=== PATIENT | female | born 1950 | race Caucasian/White ===

== ENCOUNTER 2018-07-17 18:13 | Inpatient (IN) ==
--- NOTE | 2018-07-17 18:41 | Emergency Department Note ---
START Narrative - START START: 68-year-old female with significant past medical history of diabetes currently on metformin presenting to the emergency department with chief complaint of nausea, abdominal distention and overall not feeling well. She states she has been on amoxicillin for approximately 1 week for a sinus infection. She states those symptoms resolved but now she is having fever and has had decreased appetite. Patient states she also has a distended abdomen and feels that she cannot drink enough. Her blood glucose has been elevated up into the 300s at home. Patient has had one previous admission for DKA. On physical exam patient is alert and oriented 3. Hemodynamically stable mildly tachycardic in the low 100s. Mucous membranes are dry, abdomen is distended and diffusely tender but does not seem to be surgical at this time. We will perform DKA laboratory analysis along with a CT of the abdomen and pelvis. We will sign the patient out to the night team attending Dr. Benitez.
--- NOTE | 2018-07-17 18:44 | Emergency Department Note ---
START Narrative - START START: Start note, evaluated with emergency medicine resident Dr. Monster Okeefe. We discussed with the patient that the evening ED attending resident team of Dr. Benitez and Dr. Gutierrez be arriving shortly. Patient is non-insulin dependent diabetic appears dehydrated and tachycardic complaining of generalized malaise abdominal pain. Patient will get screening labs IV fluids anti-medics abdominal pelvic CT and urinalysis. Patient in stable condition and is understanding of this management plan.
--- NOTE | 2018-07-17 19:34 | Emergency Department Note ---
Disposition Clinical Impression: Ruptured appendicitis Leukocytosis Qualifiers: Leukocytosis type: unspecified Qualified Code(s): D72.829 - Elevated white blood cell count, unspecified Disposition: Admitted As Inpatient Condition: Fair Referrals: Sherry Fermin CNP [Primary Care Provider] - Forms: ED Satisfaction Letter General Adult HPI - General Chief complaint: ED Fever Stated complaint: Blood glucose 259,fever,sinus infection Time Seen by Provider: 07/17/18 18:28 Source: patient Mode of arrival: private vehicle Limitations: no limitations Nursing Notes Reviewed: Yes Vital Signs Reviewed: Yes - History of Present Illness HPI Narrative: 68-year-old female presenting with a complaint of recent sinus infection and abdominal pain. Started on amoxicillin roughly 1 week ago for sinusitis. At home her glucose has been running 2-300 which is abnormal for her. She only is on metformin at this time. Reports lower abdominal pain with no bowel movement in the last 48 hours. Has one prior abdominal surgery for necrotizing fasciitis in the right groin. Denies any dysuria or hematuria. Has been nauseated without vomiting. No other complaints. Pt Subjective Complaint: High glucose levels, recent sinus infection Onset (ago): day(s) Location: abdomen Radiation: abdomen Pain Severity: moderate Pain Scale: 7 Consistency: constant Improves with: nothing Worsens with: nothing Associated symptoms: Reports: nausea/vomiting. Denies: fever/chills Treatments Prior to Arrival: none - Related Data Allergies Allergy/AdvReac Type Severity Reaction Status Date / Time No Known Allergies Allergy Verified 07/17/18 18:23 All systems ED: reviewed and negative except as stated. Constitutional: Denies: fever Gastrointestinal: Reports: abdominal pain, nausea, constipation. Denies: vomiting, diarrhea Genitourinary: Denies: dysuria, hematuria Past Medical History - Past Medical History Attestation: Yes The following information was validated with the patient. Source: patient Medical history: Reports: diabetes - Social History Smoking Status: Unknown if ever smoked Physical Exam - General Limitations: no limitations General appearance: alert, in no apparent distress - Head Head exam: atraumatic, normocephalic, normal inspection - Eye Eye exam: Present: normal appearance - ENT ENT exam: normal exam - Neck Neck exam: Present: normal inspection - Chest Chest inspection: Present: normal inspection, symmetric chest wall rise - Respiratory Respiratory exam: Present: normal lung sounds bilaterally - Cardiovascular Cardiovascular exam: Present: normal rhythm, tachycardia, normal heart sounds - Abdominal Exam Abdominal exam: Present: soft, tenderness (The patient has moderate bilateral lo wer quadrant tenderness on exam with voluntary guarding.), guarding (Voluntary). Absent: distention, rigidity - Extremities Exam Extremities exam: Present: normal inspection, full ROM - Expanded Upper Extremity Exam Shoulder exam: Present: normal inspection, full ROM Arm exam: Present: normal inspection, full ROM Elbow exam: Present: normal inspection, full ROM Forearm/Wrist exam: Present: normal inspection, full ROM Hand exam: Present: normal inspection, full ROM - Expanded Lower Extremity Exam Hip/Pelvis exam: Present: normal inspection, full ROM Upper leg exam: Present: normal inspection, full ROM Knee exam: Present: normal inspection, full ROM Lower leg exam: Present: normal inspection, full ROM Ankle exam: Present: normal inspection, full ROM Foot/toe exam: Present: normal inspection, full ROM - Skin Skin exam: Present: warm, dry Course Course Narrative: Patient seen and examined. Vital signs reviewed. She does have a moderate amount of abdominal pain. Imaging labs ordered at this time. - Reevaluation(s) Reevaluation #1: Lactate and blood cultures obtained. Lactate wnl. Awaiting surgical evaluation. Reevaluation #2: Spoke with Dr. Sigala in the emergency department after evaluation of the patient. Recommends that the patient have a drain placed by interventional radiology tomorrow and then an interval appendectomy. No plans for immediate surgical intervention at this time. Plans to follow the patient in consultation with the hospitalist service. - Consultations Consultation #1: I spoke with the medical student on with Dr. Ho as he was currently in surgery who relayed the patient's history as well as imaging and labs. Patient is noted to have ruptured appendicitis with adjacent fluid collection containing gas. Labs at this point demonstrated a leukocytosis of 30. During a dose of Zosyn. Request admission to the hospitalist and they will be down to see the patient when able. Vital Signs Temperature 99.2 F 07/17/18 18:19 Pulse Rate 107 07/17/18 18:19 Respiratory Rate 18 07/17/18 18:19 Blood Pressure 133/65 07/17/18 18:19 O2 Sat by Pulse Oximetry 91 07/17/18 18:19 Temperature 99.2 F 07/17/18 19:28 Pulse Rate 101 07/17/18 20:53 Respiratory Rate 18 07/17/18 20:53 Blood Pressure 122/59 07/17/18 20:53 O2 Sat by Pulse Oximetry 94 07/17/18 20:53 Oxygen Delivery Oxygen Delivery Room Air Medical Decision Making - MDM Narrative Medical decision making narrative: 68-year-old female with ruptured appendicitis with abscess formation. She is noted to have a leukocytosis of roughly 30 here. Normal lactate. Blood cultures obtained. Patient started on Zosyn. She was evaluated by general surgery with admission to the hospitalist service with anticipated intervention al radiology intervention tomorrow. - Lab Data Lab results reviewed: Yes I reviewed the patient's lab results. Result diagrams: 07/17/18 19:22 07/17/18 19:22 Lab Results 07/17/18 07/17/18 07/17/18 Range/Units 19:22 19:22 19:22 WBC 30.3 H* (4.3-11.1) K/mcL RBC 4.74 (3.82-4.97) M/mcL Hgb 14.5 (11.5-15.4) g/dL Hct 42.8 (35.3-44.9) % MCV 90.3 (83.0-100.0) fL MCH 30.6 (28.0-33.3) pg MCHC 33.9 (31.6-35.5) g/dL RDW 13.4 (11.5-14.5) % Plt Count 221 (140-400) K/mcL MPV 9.5 (9.4-12.4) fL Seg Neutrophils % 70.0 % Band Neutrophils % 18.0 H (0-4) % Lymphocytes % 8.0 % Monocytes % 4.0 % Neutrophils # 26.7 H (1.6-8.9) K/mcL Lymphocytes # 2.4 (0.6-4.6) K/mcL Monocytes # 1.2 (0.0-1.3) K/mcL Platelet Estimate Normal (Normal) PT (9.4-12.1) Seconds INR VBG pH (7.32-7.42) pH Units VBG pCO2 (41-51) mmHg VBG pO2 (25-50) mmHg VBG HCO3 (21-27) mEq/L Sodium 133 L (136-145) mEq/L Potassium 3.9 (3.5-5.1) mEq/L Chloride 96 L (98-107) mEq/L Carbon Dioxide 27 (23-29) mEq/L BUN 25 H (8-23) mg/dL Creatinine 0.72 (0.60-1.20) mg/dL Est GFR ( Amer) > 60 (> 60) Est GFR (Non-Af Amer) > 60 (> 60) BUN/Creatinine Ratio 35 H (6-26) Glucose 241 H (70-105) mg/dL Calculated Osmolality 288 (280-300) Lactic Acid (0.5-2.2) mmol/L Calcium 9.3 (8.6-10.3) mg/dL Total Bilirubin 0.8 (0.3-1.0) mg/dL AST 11 L (13-39) Units/L ALT 12 (7-52) Units/L Alkaline Phosphatase 56 (34-104) Units/L Serum Total Protein 6.7 (6.4-8.9) g/dL Albumin 3.7 (3.5-5.7) g/dL Globulin 3.0 (2.4-3.5) g/dL Albumin/Globulin Ratio 1.2 (1.1-2.2) Lipase < 3 L (11-82) Units/L Beta-Hydroxybutyric Acd 0.25 (0.02-0.27) mmol/L Urine Color (Yellow) Urine Clarity (Clear) Urine pH (5.0-8.0) pH Units Ur Specific [place] (1.010-1.025) Urine Protein (Neg-Trace) mg/dL Urine Glucose (UA) (Normal) mg/dL Urine Ketones (Negative) mg/dL Urine Blood (Negative) Urine Nitrite (Negative) Urine Bilirubin (Negative) Urine Urobilinogen (Normal) mg/dL Ur Leukocyte Esterase (Negative) Urine Microscopic RBC (0-3) per hpf Urine Microscopic WBC (0-3) per hpf Ur Squamous Epith Cells (None-Few) per lpf Urine Bacteria (None-Few) per hpf Hyaline Casts (None-Few) per lpf Ur Culture Indicated? (NO) 07/17/18 07/17/18 07/17/18 Range/Units 19:27 19:45 19:48 WBC (4.3-11.1) K/mcL RBC (3.82-4.97) M/mcL Hgb (11.5-15.4) g/dL Hct (35.3-44.9) % MCV (83.0-100.0) fL MCH (28.0-33.3) pg MCHC (31.6-35.5) g/dL RDW (11.5-14.5) % Plt Count (140-400) K/mcL MPV (9.4-12.4) fL Seg Neutrophils % % Band Neutrophils % (0-4) % Lymphocytes % % Monocytes % % Neutrophils # (1.6-8.9) K/mcL Lymphocytes # (0.6-4.6) K/mcL Monocytes # (0.0-1.3) K/mcL Platelet Estimate (Normal) PT 14.1 H (9.4-12.1) Seconds INR 1.3 VBG pH 7.42 (7.32-7.42) pH Units VBG pCO2 44 (41-51) mmHg VBG pO2 46 (25-50) mmHg VBG HCO3 28 H (21-27) mEq/L Sodium (136-145) mEq/L Potassium (3.5-5.1) mEq/L Chloride (98-107) mEq/L Carbon Dioxide (23-29) mEq/L BUN (8-23) mg/dL Creatinine (0.60-1.20) mg/dL Est GFR ( Amer) (> 60) Est GFR (Non-Af Amer) (> 60) BUN/Creatinine Ratio (6-26) Glucose (70-105) mg/dL Calculated Osmolality (280-300) Lactic Acid (0.5-2.2) mmol/L Calcium (8.6-10.3) mg/dL Total Bilirubin (0.3-1.0) mg/dL AST (13-39) Units/L ALT (7-52) Units/L Alkaline Phosphatase (34-104) Units/L Serum Total Protein (6.4-8.9) g/dL Albumin (3.5-5.7) g/dL Globulin (2.4-3.5) g/dL Albumin/Globulin Ratio (1.1-2.2) Lipase (11-82) Units/L Beta-Hydroxybutyric Acd (0.02-0.27) mmol/L Urine Color [place] A (Yellow) Urine Clarity Cloudy A (Clear) Urine pH 5.5 (5.0-8.0) pH Units Ur Specific [place] 1.029 H (1.010-1.025) Urine Protein 100 H (Neg-Trace) mg/dL Urine Glucose (UA) Normal (Normal) mg/dL Urine Ketones Trace H (Negative) mg/dL Urine Blood Negative (Negative) Urine Nitrite Negative (Negative) Urine Bilirubin Negative (Negative) Urine Urobilinogen Normal (Normal) mg/dL Ur Leukocyte Esterase Small H (Negative) Urine Microscopic RBC 0-3 (0-3) per hpf Urine Microscopic WBC 3-5 H (0-3) per hpf Ur Squamous Epith Cells Many H (None-Few) per lpf Urine Bacteria Few (None-Few) per hpf Hyaline Casts Few (None-Few) per lpf Ur Culture Indicated? NO. A (NO) 07/17/18 Range/Units 20:24 WBC (4.3-11.1) K/mcL RBC (3.82-4.97) M/mcL Hgb (11.5-15.4) g/dL Hct (35.3-44.9) % MCV (83.0-100.0) fL MCH (28.0-33.3) pg MCHC (31.6-35.5) g/dL RDW (11.5-14.5) % Plt Count (140-400) K/mcL MPV (9.4-12.4) fL Seg Neutrophils % % Band Neutrophils % (0-4) % Lymphocytes % % Monocytes % % Neutrophils # (1.6-8.9) K/mcL Lymphocytes # (0.6-4.6) K/mcL Monocytes # (0.0-1.3) K/mcL Platelet Estimate (Normal) PT (9.4-12.1) Seconds INR VBG pH (7.32-7.42) pH Units VBG pCO2 (41-51) mmHg VBG pO2 (25-50) mmHg VBG HCO3 (21-27) mEq/L Sodium (136-145) mEq/L Potassium (3.5-5.1) mEq/L Chloride (98-107) mEq/L Carbon Dioxide (23-29) mEq/L BUN (8-23) mg/dL Creatinine (0.60-1.20) mg/dL Est GFR ( Amer) (> 60) Est GFR (Non-Af Amer) (> 60) BUN/Creatinine Ratio (6-26) Glucose (70-105) mg/dL Calculated Osmolality (280-300) Lactic Acid 1.2 (0.5-2.2) mmol/L Calcium (8.6-10.3) mg/dL Total Bilirubin (0.3-1.0) mg/dL AST (13-39) Units/L ALT (7-52) Units/L Alkaline Phosphatase (34-104) Units/L Serum Total Protein (6.4-8.9) g/dL Albumin (3.5-5.7) g/dL Globulin (2.4-3.5) g/dL Albumin/Globulin Ratio (1.1-2.2) Lipase (11-82) Units/L Beta-Hydroxybutyric Acd (0.02-0.27) mmol/L Urine Color (Yellow) Urine Clarity (Clear) Urine pH (5.0-8.0) pH Units Ur Specific [place] (1.010-1.025) Urine Protein (Neg-Trace) mg/dL Urine Glucose (UA) (Normal) mg/dL Urine Ketones (Negative) mg/dL Urine Blood (Negative) Urine Nitrite (Negative) Urine Bilirubin (Negative) Urine Urobilinogen (Normal) mg/dL Ur Leukocyte Esterase (Negative) Urine Microscopic RBC (0-3) per hpf Urine Microscopic WBC (0-3) per hpf Ur Squamous Epith Cells (None-Few) per lpf Urine Bacteria (None-Few) per hpf Hyaline Casts (None-Few) per lpf Ur Culture Indicated? (NO) - Radiology Data Radiology results reviewed: Yes I reviewed the patient's radiology results. Abdomen/Pelvis CT 07/17/18 18:37 IMPRESSION: Findings consistent with acute appendicitis. 3.9 cm adjacent fluid collection is likely due to appendiceal rupture. Cholelithiasis without evidence of cholecystitis. D/ / Arvind Lester MD / Arvind Lester MD Interpreting Provider: Arvind Lester MD [facility] - [facility] Situation: Demographics, MOA Background: Presenting Complaint, Relevant PMH, Meds, & Allergies Assessment: Vital Signs, Course and respsone to treatment, Exam Concerns, Patient/Family Expectation, Pertinant Lab Results Recommendation: Barrier(s) to disposition, Recommendation based on pending studies, treatments, or consults Thais Report Given to: Dr. Amy Plascencia Repor Time: 21:50
[2018-07-17 19:48] LABS: Hematocrit 42.8 % (35.3-44.9); Hemoglobin 14.5 g/dL (11.5-15.4); Mean Corpuscular HGB Conc 33.9 g/dL (31.6-35.5); Mean Corpuscular Hemoglobin 30.6 pg (28.0-33.3); Mean Corpuscular Volume 90.3 fL (83.0-100.0); Mean Platelet Volume 9.5 fL (9.4-12.4); Platelet Count 221 K/mcL (140-400); Red Blood Count 4.74 M/mcL (3.82-4.97); Red Cell Distribution Width 13.4 % (11.5-14.5)
[2018-07-17 19:51] LABS: VBG HCO3 28 mEq/L (21-27); VBG PCO2 44 mmHg (41-51); VBG PH 7.42 pH Units (7.32-7.42); VBG PO2 46 mmHg (25-50)
[2018-07-17] MEDS ORDERED: Piperacillin/Tazobactam 3.375 GM in 0.9 % Sodium Chloride Mini Bag 100 ML IVPB ONE (19:53)
[2018-07-17] MEDS: 0.9 % Sodium Chloride 1,000 ML IVC SCH ×2 (19:53→23:41)
[2018-07-17 19:58] LABS: Bilirubin,Urine Negative (Negative); Blood,Urine Negative (Negative); Clarity,Urine Cloudy (Clear); Color,Urine Orange (Yellow); Glucose,Urine (UA) Normal (Normal); Ketones,Urine Trace mg/dL (Negative); Leukocyte Esterase,Urine Small (Negative); Nitrite,Urine Negative (Negative); PH,Urine 5.5 pH Units (5.0-8.0); Protein,Urine 100 mg/dL (Neg-Trace); Specific Gravity,Urine 1.029 (1.010-1.025); Urobilinogen,Urine Normal (Normal)
[2018-07-17 20:06] LABS: Alanine Aminotransferase 12 Units/L (7-52); Albumin 3.7 g/dL (3.5-5.7); Albumin/Globulin Ratio 1.2 (1.1-2.2); Alkaline Phosphatase 56 Units/L (34-104); Aspartate Amino Transferase 11 Units/L (13-39); BUN/Creatinine Ratio 35 (6-26); Bilirubin,Total 0.8 mg/dL (0.3-1.0); Blood Urea Nitrogen 25 mg/dL (8-23); Calcium 9.3 mg/dL (8.6-10.3); Carbon Dioxide 27 mEq/L (23-29); Chloride 96 mEq/L (98-107); Glucose 241 mg/dL (70-105); Lipase < 3 Units/L (11-82); Osmolality,Calculated 288 (280-300); Potassium 3.9 mEq/L (3.5-5.1); Sodium 133 mEq/L (136-145); Total Protein 6.7 g/dL (6.4-8.9); eGFR For Non-African Americans > 60 (> 60)
[2018-07-17 20:15] LABS: Bacteria,Urine Few per hpf (None-Few); Hyaline Casts,Urine Few per lpf (None-Few); RBC,Urine 0-3 per hpf (0-3); Squamous Epithelial Cell,Urine Many per lpf (None-Few)
[2018-07-17 20:18] LABS: Lymphocytes # 2.4 K/mcL (0.6-4.6); Monocytes # 1.2 K/mcL (0.0-1.3); Neutrophils # 26.7 K/mcL (1.6-8.9); Platelet Estimate Normal (Normal)
[2018-07-17 20:21] LABS: INR 1.3; Prothrombin Time 14.1 Seconds (9.4-12.1)
--- NOTE | 2018-07-17 21:50 | General Surgery Consult Note ---
Date of Encounter: 07/17/18 Time of Encounter: 21:48 Assessment and Plan (1) Ruptured appendicitis Current Visit: Yes Status: Acute 68F with perforated appendicitis; leukocytosis, tender on exam, non peritoneal NPO IVF IV abx (zosyn) activity as tolerated trend WBC, temp IR consult for drainage of abscess no acute surgery will cont to follow cares per primary team History of Present Illness Consult date: 07/17/18 Reason for consult: abdominal pain History of present illness: 68F h/o HTN, DM, prior history of necrotizing fascitis who presents with 4 days of worsening abdominal pain. The pain is localized to the RLQ, non radiating, with no identifiable precipitating event. The states that she was on amoxicillin x 4 days prior to the start of her abdominal pain 2/2 upper respiratory infection. The pain ~ 5/10, worsened with movement, better when ly ing still. The patient has associated anorexia and fever (101). Due to the severity and persistence of the pain, she presents to the ER for further evaluation. A CT scan was obtained demonstrating findings consistent with perforated appendicitis with associated abscess. Past Med Surg Social Fam HX - Past Medical History Medical history: diabetes - Past Surgical History Surgical History: other (excisional debridement 2/2 nec fasc) - Social History Smoking Status: Unknown if ever smoked Medications and Allergies Allergy/AdvReac Type Severity Reaction Status Date / Time No Known Allergies Allergy Verified 07/17/18 18:23 Review of Systems All systems PM: 12 point ROS negative besides HPI findings General Surgery Exam Initial Vital Signs Temp Pulse Resp BP Pulse Ox 99.2 F 107 18 133/65 91 07/17/18 18:19 07/17/18 18:19 07/17/18 18:19 07/17/18 18:19 07/17/18 18:19 - General physical appearance no distress - Eyes normal ocular movement - ENT normocephalic - Neck trachea midline, no lymphadectomy - Respiratory normal expansion, normal respiratory effort - Cardiovascular Cardiovascular exam: Present: RRR - Abdomen Abdomen general surgery: Present: soft, tender Abdominal Tenderness: Present: RLQ, suprapubic - Integumentary Integumentary general surgery: Present: warm and dry, no abnormal pigmentation - Neurologic Present: CN 2-12 grossly intact - Musculoskeletal Present: normal posture - Psychiatric Psychiatric general surgery: Present: A&Ox3 Exam Initial Vital Signs Temp Pulse Resp BP Pulse Ox 99.2 F 107 18 133/65 91 07/17/18 18:19 07/17/18 18:19 07/17/18 18:19 07/17/18 18:19 07/17/18 18:19 Results - Labs 07/17/18 19:22 07/17/18 19:22 Abnormal lab results WBC 30.3 K/mcL (4.3-11.1) H* 07/17/18 19:22 Band Neutrophils % 18.0 % (0-4) H 07/17/18 19:22 Neutrophils # 26.7 K/mcL (1.6-8.9) H 07/17/18 19:22 PT 14.1 Seconds (9.4-12.1) H 07/17/18 19:27 VBG HCO3 28 mEq/L (21-27) H 07/17/18 19:48 Sodium 133 mEq/L (136-145) L 07/17/18 19:22 Chloride 96 mEq/L (98-107) L 07/17/18 19:22 BUN 25 mg/dL (8-23) H 07/17/18 19:22 BUN/Creatinine Ratio 35 (6-26) H 07/17/18 19:22 Glucose 241 mg/dL (70-105) H 07/17/18 19:22 AST 11 Units/L (13-39) L 07/17/18 19:22 Lipase < 3 Units/L (11-82) L 07/17/18 19:22 Urine Color [place] (Yellow) A 07/17/18 19:45 Urine Clarity Cloudy (Clear) A 07/17/18 19:45 Ur Specific [place] 1.029 (1.010-1.025) H 07/17/18 19:45 Urine Protein 100 mg/dL (Neg-Trace) H 07/17/18 19:45 Urine Ketones Trace mg/dL (Negative) H 07/17/18 19:45 Ur Leukocyte Esterase Small (Negative) H 07/17/18 19:45 Urine Microscopic WBC 3-5 per hpf (0-3) H 07/17/18 19:45 Ur Squamous Epith Cells Many per lpf (None-Few) H 07/17/18 19:45 Ur Culture Indicated? NO. (NO) A 07/17/18 19:45 Diabetes panel 07/17/18 Range/Units 19:22 Sodium 133 L (136-145) mEq/L Potassium 3.9 (3.5-5.1) mEq/L Chloride 96 L (98-107) mEq/L Carbon Dioxide 27 (23-29) mEq/L BUN 25 H (8-23) mg/dL Creatinine 0.72 (0.60-1.20) mg/dL Glucose 241 H (70-105) mg/dL Calcium 9.3 (8.6-10.3) mg/dL AST 11 L (13-39) Units/L ALT 12 (7-52) Units/L Alkaline Phosphatase 56 (34-104) Units/L Albumin 3.7 (3.5-5.7) g/dL Calcium panel 07/17/18 Range/Units 19:22 Calcium 9.3 (8.6-10.3) mg/dL Albumin 3.7 (3.5-5.7) g/dL Pituitary panel 07/17/18 Range/Units 19:22 Sodium 133 L (136-145) mEq/L Potassium 3.9 (3.5-5.1) mEq/L Chloride 96 L (98-107) mEq/L Carbon Dioxide 27 (23-29) mEq/L BUN 25 H (8-23) mg/dL Creatinine 0.72 (0.60-1.20) mg/dL Glucose 241 H (70-105) mg/dL Calcium 9.3 (8.6-10.3) mg/dL Adrenal panel 07/17/18 Range/Units 19:22 Sodium 133 L (136-145) mEq/L Potassium 3.9 (3.5-5.1) mEq/L Chloride 96 L (98-107) mEq/L Carbon Dioxide 27 (23-29) mEq/L BUN 25 H (8-23) mg/dL Creatinine 0.72 (0.60-1.20) mg/dL Glucose 241 H (70-105) mg/dL Calcium 9.3 (8.6-10.3) mg/dL Total Bilirubin 0.8 (0.3-1.0) mg/dL AST 11 L (13-39) Units/L ALT 12 (7-52) Units/L Alkaline Phosphatase 56 (34-104) Units/L Albumin 3.7 (3.5-5.7) g/dL All other labs normal. - Imaging CT scan - abdomen: report reviewed, image reviewed CT scan - pelvis: report reviewed, image reviewed Consult Discharge Plan - Plan Referrals: Sherry Fermin, SOPHIE [Primary Care Provider] -
--- NOTE | 2018-07-18 01:59 | Internal Med History&Physical ---
<Seth Weir R - Last Filed: 07/18/18 03:59> Date of Encounter: 07/18/18 Time of Encounter: 01:57 Internal Medicine - H&P: HPI Chief complaint: abdominal pain Admitted From: Emergency Dept Plans for Post Hospital Care: Home History of present illness: Ms. Lyle is a 68 year old female with a history of non-insulin dependent diabetes and peripheral neuropathy. Presented to ED for evaluation of elevated blood sugars (200-300s) and abdominal pain. Reports that her glucose is usually in the low 100's. Abdominal pain, malaise, poor appetite, and mild nausea without vomiting for the past 2-3 days. Pain has been worsening and is now localizing to the RLQ. Reports low grade fever at home. Denies chest pain, palpitations, shortness of breath, change in bowel habits, vomiting, hematochezia, melena. CT abdomen and pelvis in the ED consistent with perforated appendicitis with 3.3 x 3.8 cm fluid collection. WBC elevated at 30K with bands present. Lactate WNL. Received IV zosyn. Past Med Surg Social Fam HX - Past Medical History Medical history: diabetes - Past Surgical History Surgical History: other (excisional debridement 2/2 nec fasc) - Social History Smoking Status: Unknown if ever smoked Internal Medicine - H&P: Meds Ascorbic Acid [Vitamin C] 1,000 mg PO DAILY 07/17/18 [History] Cholecalciferol (Vitamin D3) [Vitamin D] 2,000 unit PO DAILY 07/17/18 [History] Fish Oil/Dha/Epa [Fish Oil 1,200 mg Fish Oil] 3 cap PO DAILY 07/17/18 [History] Gabapentin [Neurontin] 200 mg PO BID 07/17/18 [History] Losartan Potassium 25 mg PO BID 07/17/18 [History] Magnesium 750 - 1,000 mg PO DAILY 07/17/18 [History] Metformin HCl 1,000 mg PO BID 07/17/18 [History] Multivitamin [One Daily] 1 tab PO DAILY 07/17/18 [History] Vitamin B Complex [Balanced B-50] 2 cap PO DAILY 07/17/18 [History] Allergy/AdvReac Type Severity Reaction Status Date / Time No Known Allergies Allergy Verified 07/17/18 18:23 All Systems PM: A 10-system review of systems was performed and is negative for pertinent findings except as documented above in the HPI. - Constitutional Constitutional: fever(s), malaise, no chills - EENT Eyes: no change in vision, no diplopia Nose, mouth and throat: no dysphagia, no epistaxis, no odynophagia - Cardiovascular Cardiovascular ROS IM: no chest pain, no dyspnea, no edema, no palpitations - Respiratory Respiratory: no cough, no dyspnea, no hemoptysis, no wheezing - Gastrointestinal Gastrointestinal: abdominal pain, constipation, nausea, no coffee ground emesis, no diarrhea, no hematemesis, no hematochezia, no melena, no vomiting - Genitourinary Genitourinary: no dysuria, no flank pain - Musculoskeletal Musculoskeletal ROS IM: no neck pain, no numbness - Integumentary Integumentary IM: no erythema, no rash - Neurological Neurological ROS: no abnormal gait, no confusion, no dizziness, no focal weakness - Psychiatric Psychiatric: no anxiety, no confusion, no depression - Hematologic/Lymphatic Hematologic/Lymphatic: no easy bleeding, no easy bruising - Constitutional Vitals: Temp Pulse Resp BP Pulse Ox 99.6 F 97 18 115/67 91 07/18/18 00:51 07/18/18 00:51 07/18/18 00:51 07/18/18 00:51 07/18/18 00:51 Exam: General: lying in bed asleep, no apparent distress. HEENT: Atraumatic, normocephalic, Pupils PERLL with EOMI, dry mucous membranes Neck: soft, full range of motion, no lymphadenopathy Cardio: regular rathe and rhythm, 3/6 systolic murmur present, loudest over aorta Respiratory: clear to ausculation bilateral, no wheezing, crackles, or rhonchi Abdomen: Soft, obese, tenderness to palpation worsen at the RLQ, rebound pain present, voluntary guarding present Extremities: No swelling or edema, 2+ peripheral pulses Neuro: Alert and oriented to person, place, and situation. No focal deficients Psych: conversant and pleasant, appropriate mood and affect Internal Med - H&P Results - Labs CBC & Chem 7: 07/18/18 03:16 07/17/18 19:22 Labs: Short CBC 07/17/18 Range/Units 19:22 WBC 30.3 H* (4.3-11.1) K/mcL Hgb 14.5 (11.5-15.4) g/dL Hct 42.8 (35.3-44.9) % Plt Count 221 (140-400) K/mcL Neutrophils # 26.7 H (1.6-8.9) K/mcL BMP 07/17/18 19:22 Sodium 133 L Potassium 3.9 Chloride 96 L Carbon Dioxide 27 BUN 25 H Creatinine 0.72 Glucose 241 H Calcium 9.3 Liver Function 07/17/18 Range/Units 19:22 Total Bilirubin 0.8 (0.3-1.0) mg/dL AST 11 L (13-39) Units/L ALT 12 (7-52) Units/L Alkaline Phosphatase 56 (34-104) Units/L Albumin 3.7 (3.5-5.7) g/dL Urine 07/17/18 Range/Units 19:45 Urine Color [place] A (Yellow) Urine Clarity Cloudy A (Clear) Urine pH 5.5 (5.0-8.0) pH Units Ur Specific [place] 1.029 H (1.010-1.025) Urine Protein 100 H (Neg-Trace) mg/dL Urine Glucose (UA) Normal (Normal) mg/dL - ABG Interpretation ABG results: 07/17/18 19:48 VBG pH 7.42 VBG pCO2 44 VBG pO2 46 VBG HCO3 28 H - Impressions ITS Impressions Abdomen/Pelvis CT 07/17/18 18:37 IMPRESSION: Findings consistent with acute appendicitis. 3.9 cm adjacent fluid collection is likely due to appendiceal rupture. Cholelithiasis without evidence of cholecystitis. D/ / Arvind Lester MD / Arvind Lester MD Interpreting Provider: Arvind Lester MD - Assessment and plan (1) Ruptured appendicitis Current Visit: Yes Status: Acute Assessment and plan: Ruptured appendicitis on CT abdomen/pelvis with associated fluid collection 3.3 x 3.8 cm Meeting sepsis criteria with HR>100 and leukocytosis of 30K Lactate within normal limits Plan: Surgery consulted, recommending IR consult for possible CT guided drainage and interval appendectomy NPO Continue antibiotic with Zosyn IV fluids, will order one more liter prn antiemetic pain management blood cultures drawn, follow for result AM CBC (2) Leukocytosis Current Visit: Yes Status: Acute Assessment and plan: Leukocytosis of 30K at admission with elevated bands, consistent with ruptured appendicitis Continue treatment as above with abx Repeat AM CBC Qualifiers: Leukocytosis type: unspecified Qualified Code(s): D72.829 - Elevated white blood cell count, unspecified (3) Systolic murmur Current Visit: Yes Status: Acute Assessment and plan: 3/6 systolic murmur loudest over aortic listening post No prior history of murmur by [employer] or ecw Echo from 2013 without significant cardiac or valvular abnormality Plan: will obtain ekg and echocardiogram for new murmur Blood cultures obtained and pending (4) Sepsis Current Visit: Yes Status: Acute Assessment and plan: Meeting 2/4 sirs criteria with leukocytosis and tachycardia Source of infection with ruptured appendicitis Lactate within normal limits Plan: 1L addition IV fluids Abx as above with Zosyn Blood cultures pending Trend CBC Qualifiers: Sepsis type: sepsis due to unspecified organism Qualified Code(s): A41.9 - Sepsis, unspecified organism (5) Diabetes mellitus Current Visit: Yes Status: Acute Assessment and plan: Hold home metformin Start Sliding scale insulin and Q6H accu-checks Qualifiers: Diabetes mellitus type: type 2 Diabetes mellitus shelter insulin use: wi thout rn long term care use Diabetes mellitus complication status: with unspecified complications Qualified Code(s): E11.8 - Type 2 diabetes mellitus with unspecified complications (6) Peripheral neuropathy Current Visit: Yes Status: Acute Assessment and plan: Hold home gabapentin while NPO Qualifiers: Peripheral neuropathy type: polyneuropathy, unspecified Qualified Code(s): G62.9 - Polyneuropathy, unspecified (7) DVT prophylaxis Current Visit: Yes Status: Acute Assessment and plan: SCD's pending possible IR procedure - Time Spent With Patient Total time spent is greater than 50% in coordination of care (as documented) at patient's floor/unit and/or counseling patient: <Lawson Recio - Last Filed: 07/18/18 07:10> Date of Encounter: 07/18/18 Internal Medicine - H&P: HPI History of present illness: Ms. Lyle is a 68 year old female All Systems PM: A 10-system review of systems was performed and is negative for pertinent findings except as documented above in the HPI. - Constitutional Vitals: Temp Pulse Resp BP Pulse Ox 99.5 F 97 18 119/56 90 07/18/18 05:11 07/18/18 05:11 07/18/18 05:11 07/18/18 05:11 07/18/18 05:11 Internal Med - H&P Results - Labs CBC & Chem 7: 07/18/18 03:16 07/18/18 03:16 Labs: Short CBC 07/17/18 07/18/18 Range/Units 19:22 03:16 WBC 30.3 H* 25.0 H (4.3-11.1) K/mcL Hgb 14.5 13.3 (11.5-15.4) g/dL Hct 42.8 39.6 (35.3-44.9) % Plt Count 221 195 (140-400) K/mcL Neutrophils # 26.7 H 21.0 H (1.6-8.9) K/mcL BMP 07/17/18 07/18/18 19:22 03:16 Sodium 133 L 133 L Potassium 3.9 3.6 Chloride 96 L 103 Carbon Dioxide 27 25 BUN 25 H 22 Creatinine 0.72 0.53 L Glucose 241 H 199 H Calcium 9.3 8.8 Liver Function 07/17/18 Range/Units 19:22 Total Bilirubin 0.8 (0.3-1.0) mg/dL AST 11 L (13-39) Units/L ALT 12 (7-52) Units/L Alkaline Phosphatase 56 (34-104) Units/L Albumin 3.7 (3.5-5.7) g/dL Urine 07/17/18 Range/Units 19:45 Urine Color [place] A (Yellow) Urine Clarity Cloudy A (Clear) Urine pH 5.5 (5.0-8.0) pH Units Ur Specific [place] 1.029 H (1.010-1.025) Urine Protein 100 H (Neg-Trace) mg/dL Urine Glucose (UA) Normal (Normal) mg/dL - ABG Interpretation ABG results: 07/17/18 19:48 VBG pH 7.42 VBG pCO2 44 VBG pO2 46 VBG HCO3 28 H - Impressions ITS Impressions Abdomen/Pelvis CT 07/17/18 18:37 IMPRESSION: Findings consistent with acute appendicitis. 3.9 cm adjacent fluid collection is likely due to appendiceal rupture. Cholelithiasis without evidence of cholecystitis. D/ / Arvind Lester MD / Arvind Lester MD Interpreting Provider: Arvind Lester MD - Time Spent With Patient Total time spent is greater than 50% in coordination of care (as documented) at patient's floor/unit and/or counseling patient: - Attending Attestation I saw and evaluated the patient. I reviewed the residents note, performed my own physical examination and agree with findings and plan as documented in the residents note. Patient seen and examined on 07/18/18. Patient has ruptured appendix as seen on abdominal CT. Surgery consult in the emergency room, recommended IR drainage. Patient otherwise stable, abdomen is tender with palpation. We will continue antibiotics, continue to monitor.
[2018-07-18] MEDS ORDERED: Naloxone 0.4 MG/ML INJ IVP PRN (03:01)
[2018-07-18] MEDS ORDERED: *HR* Dextrose 50 % in Water (Syg) 50 ML SYRINGE IVP PRN (03:05)
[2018-07-18] MEDS ORDERED: D5% in Water 1,000 ML IVC PRN (03:05)
[2018-07-18] MEDS ORDERED: Ondansetron 4 MG/2 ML VIAL IVP PRN (03:05)
[2018-07-18] MEDS ORDERED: Dextrose Gel 15 GM/37.5 ML TUBE PO PRN ×2 (03:05)
[2018-07-18] MEDS ORDERED: OXYCODONE Oral CONC 10 MG/0.5 ML ORAL.SYG SL PRN (03:05)
[2018-07-18 03:52] LABS: Basophils # 0.1 K/mcL (0.0-0.2); Basophils % 0.2 %; Hematocrit 39.6 % (35.3-44.9); Hemoglobin 13.3 g/dL (11.5-15.4); Immature Granulocytes % 0.7 % (0-4); Lymphocytes # 2.2 K/mcL (0.6-4.6); Lymphocytes % 8.7 %; Mean Corpuscular HGB Conc 33.6 g/dL (31.6-35.5); Mean Corpuscular Hemoglobin 30.5 pg (28.0-33.3); Mean Corpuscular Volume 90.8 fL (83.0-100.0); Mean Platelet Volume 9.6 fL (9.4-12.4); Monocytes # 1.6 K/mcL (0.0-1.3); Monocytes % 6.3 %; Platelet Count 195 K/mcL (140-400); Red Blood Count 4.36 M/mcL (3.82-4.97); Red Cell Distribution Width 13.5 % (11.5-14.5); Segmented Neutrophils % 84.1 %
[2018-07-18 04:07] LABS: BUN/Creatinine Ratio 42 (6-26); Blood Urea Nitrogen 22 mg/dL (8-23); Calcium 8.8 mg/dL (8.6-10.3); Carbon Dioxide 25 mEq/L (23-29); Chloride 103 mEq/L (98-107); Glucose 199 mg/dL (70-105); Magnesium 1.9 mg/dL (1.6-2.6); Osmolality,Calculated 285 (280-300); Potassium 3.6 mEq/L (3.5-5.1); Sodium 133 mEq/L (136-145); eGFR For Non-African Americans > 60 (> 60)
[2018-07-18] MEDS: Piperacillin/Tazobactam 3.375 GM in 0.9 % Sodium Chloride Mini Bag 100 ML IVPB SCH ×3 (04:22→19:57)
[2018-07-18] MEDS: Ringers Solution, Lactated 1,000 ML IVC SCH ×2 (04:27→13:33)
[2018-07-18] MEDS: Insulin LISPRO 300 UNITS/3 ML VIAL SQ SCH ×4 (05:12→21:08)
[2018-07-18] MEDS ORDERED: *HR* Heparin 5,000 UNIT/ML VIAL SQ SCH (06:00)
--- NOTE | 2018-07-18 07:48 | General Surgery Progress Note ---
<CamronGeovanna Tellez - Last Filed: 07/18/18 07:55> Date of Encounter: 07/18/18 Time of Encounter: 07:55 - Assessment and Plan (1) Ruptured appendicitis Current Visit: Yes Status: Acute Admitted on 07/17/2018 for ruptured appendicitis. Interventional radiology and cultures associated with drain placement have been ordered. Patient to remain NPO until IR consult completed. Continue supportive care and discomfort management continue IV antibiotics repeat a.m. labs out of bed to chair TID we will continue to follow closely with the primary team. Subjective Patient reports: still having pain, voiding w/o difficulty, no flatus, no bowel movement, nausea, afebrile, fever Objective Vital Signs - Last 8 Hours Temp Pulse Resp BP Pulse Ox 07/18/18 05:11 99.5 F 97 18 119/56 90 07/18/18 00:51 99.6 F 97 18 115/67 91 Intake and Output 07/17/18 07/17/18 07/18/18 15:59 23:59 07:59 Intake Total 1100 / 1100 1000 / 1000 Output Total 200 / 200 Balance 1100 / 1100 800 / 800 Intake: IV Fluids 1100 / 1100 1000 / 1000 0.9 % Sodium Chloride 1,000 ML 1000 / 1000 1000 / 1000 @ 999 mls/hr IVC .Q1H1M [facility] Rx# :[id number] Zosyn 3.375 GM In 0.9 % Sodium 100 / 100 Chloride (Mini-Bag +) 100 ML @ 25 mls/hr IVPB ONCE ONE Rx#: [id number] Oral 0 / 0 Output: Urine 200 / 200 Other: # Bowel Movements 0 Weight 90.356 kg 90.356 kg Blood Glucose* 176 183 Patient Weight 07/18/18 23:59 Weight 90.356 kg - General physical appearance no distress, moderate pain - Eyes normal ocular movement - ENT atraumatic, normocephalic - Neck Neck exam: trachea midline - Respiratory normal expansion, normal respiratory effort, clear to auscultation - Cardiovascular Cardiovascular exam: Present: RRR - Abdomen Abdomen: Present: bowel sounds present, soft, tender Abdominal Tenderness: RLQ, LLQ Hernia: none - Integumentary no rash - Neurologic normal coordination, normal sensation - Musculoskeletal normal posture - Psychiatric oriented to time, oriented to person, oriented to place, speech is normal, memory intact - Labs 07/18/18 03:16 07/18/18 03:16 Diabetes panel 07/17/18 07/18/18 Range/Units 19:22 03:16 Sodium 133 L 133 L (136-145) mEq/L Potassium 3.9 3.6 (3.5-5.1) mEq/L Chloride 96 L 103 (98-107) mEq/L Carbon Dioxide 27 25 (23-29) mEq/L BUN 25 H 22 (8-23) mg/dL Creatinine 0.72 0.53 L (0.60-1.20) mg/dL Glucose 241 H 199 H (70-105) mg/dL Calcium 9.3 8.8 (8.6-10.3) mg/dL AST 11 L (13-39) Units/L ALT 12 (7-52) Units/L Alkaline Phosphatase 56 (34-104) Units/L Albumin 3.7 (3.5-5.7) g/dL Calcium panel 07/17/18 07/18/18 Range/Units 19:22 03:16 Calcium 9.3 8.8 (8.6-10.3) mg/dL Albumin 3.7 (3.5-5.7) g/dL Pituitary panel 07/17/18 07/18/18 Range/Units 19:22 03:16 Sodium 133 L 133 L (136-145) mEq/L Potassium 3.9 3.6 (3.5-5.1) mEq/L Chloride 96 L 103 (98-107) mEq/L Carbon Dioxide 27 25 (23-29) mEq/L BUN 25 H 22 (8-23) mg/dL Creatinine 0.72 0.53 L (0.60-1.20) mg/dL Glucose 241 H 199 H (70-105) mg/dL Calcium 9.3 8.8 (8.6-10.3) mg/dL Adrenal panel 07/17/18 07/18/18 Range/Units 19:22 03:16 Sodium 133 L 133 L (136-145) mEq/L Potassium 3.9 3.6 (3.5-5.1) mEq/L Chloride 96 L 103 (98-107) mEq/L Carbon Dioxide 27 25 (23-29) mEq/L BUN 25 H 22 (8-23) mg/dL Creatinine 0.72 0.53 L (0.60-1.20) mg/dL Glucose 241 H 199 H (70-105) mg/dL Calcium 9.3 8.8 (8.6-10.3) mg/dL Total Bilirubin 0.8 (0.3-1.0) mg/dL AST 11 L (13-39) Units/L ALT 12 (7-52) Units/L Alkaline Phosphatase 56 (34-104) Units/L Albumin 3.7 (3.5-5.7) g/dL Consult Discharge Plan - Plan Referrals: Sherry Fermin, [employer] [Primary Care Provider] - <Tramaine Sigala - Last Filed: 07/18/18 09:03> Date of Encounter: 07/18/18 - Assessment and Plan (1) Ruptured appendicitis Current Visit: Yes Status: Acute Objective Vital Signs - Last 8 Hours Temp Pulse Resp BP Pulse Ox 07/18/18 05:11 99.5 F 97 18 119/56 90 Intake and Output 07/17/18 07/18/18 07/18/18 23:59 07:59 15:59 Intake Total 1100 / 1100 1000 / 1000 Output Total 200 / 200 150 / 150 Balance 1100 / 1100 800 / 800 -150 / -150 Intake: IV Fluids 1100 / 1100 1000 / 1000 0.9 % Sodium Chloride 1,000 ML 1000 / 1000 1000 / 1000 @ 999 mls/hr IVC .Q1H1M [facility] Rx# :[id number] Zosyn 3.375 GM In 0.9 % Sodium 100 / 100 Chloride (Mini-Bag +) 100 ML @ 25 mls/hr IVPB ONCE ONE Rx#: [id number] Oral 0 / 0 Output: Urine 200 / 200 150 / 150 Other: # Bowel Movements 0 Weight 90.356 kg 90.356 kg Blood Glucose* 176 183 Patient Weight 07/18/18 23:59 Weight 90.356 kg - Labs 07/18/18 03:16 07/18/18 03:16 Diabetes panel 07/17/18 07/18/18 Range/Units 19:22 03:16 Sodium 133 L 133 L (136-145) mEq/L Potassium 3.9 3.6 (3.5-5.1) mEq/L Chloride 96 L 103 (98-107) mEq/L Carbon Dioxide 27 25 (23-29) mEq/L BUN 25 H 22 (8-23) mg/dL Creatinine 0.72 0.53 L (0.60-1.20) mg/dL Glucose 241 H 199 H (70-105) mg/dL Calcium 9.3 8.8 (8.6-10.3) mg/dL AST 11 L (13-39) Units/L ALT 12 (7-52) Units/L Alkaline Phosphatase 56 (34-104) Units/L Albumin 3.7 (3.5-5.7) g/dL Calcium panel 07/17/18 07/18/18 Range/Units 19:22 03:16 Calcium 9.3 8.8 (8.6-10.3) mg/dL Albumin 3.7 (3.5-5.7) g/dL Pituitary panel 07/17/18 07/18/18 Range/Units 19:22 03:16 Sodium 133 L 133 L (136-145) mEq/L Potassium 3.9 3.6 (3.5-5.1) mEq/L Chloride 96 L 103 (98-107) mEq/L Carbon Dioxide 27 25 (23-29) mEq/L BUN 25 H 22 (8-23) mg/dL Creatinine 0.72 0.53 L (0.60-1.20) mg/dL Glucose 241 H 199 H (70-105) mg/dL Calcium 9.3 8.8 (8.6-10.3) mg/dL Adrenal panel 07/17/18 07/18/18 Range/Units 19:22 03:16 Sodium 133 L 133 L (136-145) mEq/L Potassium 3.9 3.6 (3.5-5.1) mEq/L Chloride 96 L 103 (98-107) mEq/L Carbon Dioxide 27 25 (23-29) mEq/L BUN 25 H 22 (8-23) mg/dL Creatinine 0.72 0.53 L (0.60-1.20) mg/dL Glucose 241 H 199 H (70-105) mg/dL Calcium 9.3 8.8 (8.6-10.3) mg/dL Total Bilirubin 0.8 (0.3-1.0) mg/dL AST 11 L (13-39) Units/L ALT 12 (7-52) Units/L Alkaline Phosphatase 56 (34-104) Units/L Albumin 3.7 (3.5-5.7) g/dL - Attending Attestation patient seen and examined. i have reviewed all labs, imaging, and notes. I have discussed the case with the nurse practioneer in detail. I agree with the above assessment and plan and wish to add the following... 68F with perforated appendicitis with associated abscess; still having pain, but WBC trending down; cont abx, NPO, activity as tolerated; pain control; serial abdominal exams; no acute surgery
[2018-07-18] MEDS ORDERED: 0.9 % Sodium Chloride 500 ML ONE (14:11)
--- NOTE | 2018-07-18 14:48 | Event Note ---
Date of Encounter: 07/18/18 Time of Encounter: 08:43 patient was seen and examined at bedside. Continues to have right lower quadrant pain however it improves with pain medications. That she will need to remain nothing by mouth for possible procedure. She denies fever, chills, nausea or vomiting. Has not had a bowel movement. VSS Obese, nondistended any distress, laying supine Clear to auscultation Regular rate and rhythm, S1 and S2, could not appreciate murmur Abdomen is obese, bowel sounds positive, right lower quadrant abdominal pain on palpation, no rebound Moving all extremities, no edema or calf tenderness Alert and oriented no focal deficit Assessment and plan Sepsis secondary to acute ruptured appendicitis Questionable systolic murmur Diabetes2 Continue with IV fluids and IV Zosyn We will continue to follow CBC and BMP Nothing by mouth for possible procedure DVT prophylaxis with heparin subcutaneous Continue with sliding scale Echocardiogram and EKG.
[2018-07-19 03:53] LABS: Bilirubin,Urine Negative (Negative); Blood,Urine Negative (Negative); Clarity,Urine Clear (Clear); Color,Urine Yellow (Yellow); Glucose,Urine (UA) Normal (Normal); Ketones,Urine Negative (Negative); Leukocyte Esterase,Urine Negative (Negative); Nitrite,Urine Negative (Negative); PH,Urine 7.5 pH Units (5.0-8.0); Protein,Urine Negative (Neg-Trace); Specific Gravity,Urine 1.009 (1.010-1.025); Urobilinogen,Urine Normal (Normal)
[2018-07-19 04:21] LABS: Basophils # 0.1 K/mcL (0.0-0.2); Basophils % 0.3 %; Eosinophils # 0.1 K/mcL (0.0-0.6); Eosinophils % 0.6 %; Hematocrit 39.9 % (35.3-44.9); Immature Granulocytes % 0.4 % (0-4); Lymphocytes # 2.4 K/mcL (0.6-4.6); Lymphocytes % 13.6 %; Mean Corpuscular HGB Conc 32.6 g/dL (31.6-35.5); Mean Corpuscular Hemoglobin 30.1 pg (28.0-33.3); Mean Corpuscular Volume 92.4 fL (83.0-100.0); Mean Platelet Volume 9.8 fL (9.4-12.4); Monocytes # 1.1 K/mcL (0.0-1.3); Monocytes % 6.1 %; Platelet Count 189 K/mcL (140-400); Red Blood Count 4.32 M/mcL (3.82-4.97); Red Cell Distribution Width 13.5 % (11.5-14.5)
[2018-07-19 04:37] LABS: BUN/Creatinine Ratio 22 (6-26); Blood Urea Nitrogen 9 mg/dL (8-23); Calcium 8.8 mg/dL (8.6-10.3); Carbon Dioxide 26 mEq/L (23-29); Chloride 104 mEq/L (98-107); Glucose 169 mg/dL (70-105); Osmolality,Calculated 285 (280-300); Potassium 3.7 mEq/L (3.5-5.1); Sodium 136 mEq/L (136-145); eGFR For Non-African Americans > 60 (> 60)
[2018-07-19] MEDS: Piperacillin/Tazobactam 3.375 GM in 0.9 % Sodium Chloride Mini Bag 100 ML IVPB SCH ×3 (05:19→19:56)
[2018-07-19] MEDS: Pantoprazole 40 MG VIAL IVP SCH (05:19)
[2018-07-19] MEDS: Insulin LISPRO 300 UNITS/3 ML VIAL SQ SCH ×3 (09:27→17:35)
--- NOTE | 2018-07-19 10:22 | General Surgery Progress Note ---
Date of Encounter: 07/19/18 Time of Encounter: 10: - Assessment and Plan (1) Ruptured appendicitis Current Visit: Yes Status: Acute 68F with ruptured appendicitis; still having pain, afebrile, (+)flatus; WBC still elevated but trending down NPO except ice chips (one cup per shift) IVF IV abx; awaiting cultures from aspiration activity as tolerated when WBC and temp are both normal for 24hrs, then we can start CLD will continue to follow Subjective Patient reports: no new complaints, feels better, still having pain, pain is less, flatus, afebrile Objective Vital Signs - Last 8 Hours Temp Pulse Resp BP Pulse Ox 07/19/18 06:50 98.7 F 88 16 116/72 92 07/19/18 03:23 98.5 F 89 18 138/86 95 Intake and Output 07/18/18 07/19/18 07/19/18 23:59 07:59 15:59 Intake Total 550 / 550 1060 / 1060 340 / 340 Output Total 150 / 150 650 / 650 Balance 400 / 400 410 / 410 340 / 340 Intake: IV Fluids 190 / 190 1000 / 1000 100 / 100 Lactated Ringers 1,000 ML @ 125 1000 / 1000 mls/hr IVC .Q8H [facility] Rx#: [id number] Zosyn 3.375 GM In 0.9 % Sodium 190 / 190 100 / 100 Chloride (Mini-Bag +) 100 ML @ 25 mls/hr IVPB Q8H [facility] Rx#: [id number] Oral 360 / 360 60 / 60 240 / 240 Output: Urine 150 / 150 100 / 100 Straight Cath 550 / 550 Other: Meal Dinner CLEARS Weight 91.7 kg Blood Glucose* 155 176 Patient Weight 07/19/18 23:59 Weight 91.7 kg - General physical appearance no distress - Respiratory normal expansion, normal respiratory effort - Cardiovascular Cardiovascular exam: Present: RRR - Abdomen Abdomen: Present: soft, tender Abdominal Tenderness: RLQ, suprapubic - Neurologic CN 2-12 grossly intact - Musculoskeletal normal posture - Labs 07/19/18 03:40 07/19/18 03:40 Diabetes panel 07/19/18 Range/Units 03:40 Sodium 136 (136-145) mEq/L Potassium 3.7 (3.5-5.1) mEq/L Chloride 104 (98-107) mEq/L Carbon Dioxide 26 (23-29) mEq/L BUN 9 (8-23) mg/dL Creatinine 0.41 L (0.60-1.20) mg/dL Glucose 169 H (70-105) mg/dL Calcium 8.8 (8.6-10.3) mg/dL Calcium panel 07/19/18 Range/Units 03:40 Calcium 8.8 (8.6-10.3) mg/dL Pituitary panel 07/19/18 Range/Units 03:40 Sodium 136 (136-145) mEq/L Potassium 3.7 (3.5-5.1) mEq/L Chloride 104 (98-107) mEq/L Carbon Dioxide 26 (23-29) mEq/L BUN 9 (8-23) mg/dL Creatinine 0.41 L (0.60-1.20) mg/dL Glucose 169 H (70-105) mg/dL Calcium 8.8 (8.6-10.3) mg/dL Adrenal panel 07/19/18 Range/Units 03:40 Sodium 136 (136-145) mEq/L Potassium 3.7 (3.5-5.1) mEq/L Chloride 104 (98-107) mEq/L Carbon Dioxide 26 (23-29) mEq/L BUN 9 (8-23) mg/dL Creatinine 0.41 L (0.60-1.20) mg/dL Glucose 169 H (70-105) mg/dL Calcium 8.8 (8.6-10.3) mg/dL Consult Discharge Plan - Plan Referrals: Sherry Fermin, [employer] [Primary Care Provider] -
[2018-07-19] MEDS: OXYCODONE Oral CONC 10 MG/0.5 ML ORAL.SYG SL PRN ×2 (13:01→19:55)
--- NOTE | 2018-07-19 15:05 | Internal Med Progress Note ---
Hospitalist Progress Note - Encounter Date of Encounter: 07/19/18 Time of Encounter: 09:00 - Subjective Interval History: patient was seen and examined at bedside. reports that she still has some RLQ pain however it has dramatically improved. had o complications post procedure. is inquiring about diet. all questions answered. has had no BM. denies fver or chills, CP or SOB - Exam Vitals: Temp Pulse Resp BP Pulse Ox 99.2 F 91 16 132/76 92 07/19/18 14:15 07/19/18 14:15 07/19/18 14:15 07/19/18 14:15 07/19/18 14:15 Exam: General: lying in bed asleep, no apparent distress. HEENT: Atraumatic, normocephalic, Pupils PERLL with EOMI, dry mucous membranes Neck: soft, full range of motion, no lymphadenopathy Cardio: regular rathe and rhythm, 3/6 systolic murmur present, loudest over aorta Respiratory: clear to ausculation bilateral, no wheezing, crackles, or rhonchi Abdomen: Soft, obese, tenderness to palpation worsen at the RLQ, rebound pain present, voluntary guarding present Extremities: No swelling or edema, 2+ peripheral pulses Neuro: Alert and oriented to person, place, and situation. No focal deficients Psych: conversant and pleasant, appropriate mood and affect - Assessment and Plan (1) Ruptured appendicitis Current Visit: Yes Status: Acute Assessment and Plan: Ruptured appendicitis on CT abdomen/pelvis with associated fluid collection 3.3 x 3.8 cm s/p IR drainage on 07/18 Meeting sepsis criteria with HR>100 and leukocytosis of 30K Lactate within normal limits surgery on board to remain NPO on Zosyn IV fluids prn antiemetic pain management BCx NGTD body fluid cx with gram negative rods AM CBC (2) Sepsis Current Visit: Yes Status: Acute Assessment and Plan: secondary to above management as per above (3) Diabetes mellitus Current Visit: Yes Status: Acute Assessment and Plan: Hold home metformin Start Sliding scale insulin and Q6H accu-checks (4) Peripheral neuropathy Current Visit: Yes Status: Acute Assessment and Plan: Hold home gabapentin while NPO (5) Systolic murmur Current Visit: Yes Status: Acute Assessment and Plan: documented on admission most likely from sclerotic aortic valve LVEF 60%. Mild left ventricular diastolic dysfunction. Normal LV chamber size, wall thickness. Normal right ventricular structure and function. Moderately sclerotic aortic valve leaflets. Mild aortic stenosis. Unable to estimate RVSP due to lack of TR jet. (6) DVT prophylaxis Current Visit: Yes Status: Acute Assessment and Plan: scds - Time Spent with Patient Total time spent is greater than 50% in coordination of care (as documented) at patient's floor/unit and/or counseling patient: Internal Medicine: Result - Labs CBC & Chem 7: 07/19/18 03:40 07/19/18 03:40 Labs: Short CBC 07/19/18 Range/Units 03:40 WBC 17.7 H (4.3-11.1) K/mcL Hgb 13.0 (11.5-15.4) g/dL Hct 39.9 (35.3-44.9) % Plt Count 189 (140-400) K/mcL Neutrophils # 14.0 H (1.6-8.9) K/mcL BMP 07/19/18 03:40 Sodium 136 Potassium 3.7 Chloride 104 Carbon Dioxide 26 BUN 9 Creatinine 0.41 L Glucose 169 H Calcium 8.8 Urine 07/19/18 Range/Units 03:21 Urine Color Yellow (Yellow) Urine Clarity Clear (Clear) Urine pH 7.5 (5.0-8.0) pH Units Ur Specific [place] 1.009 L (1.010-1.025) Urine Protein Negative (Neg-Trace) mg/dL Urine Glucose (UA) Normal (Normal) mg/dL - ABG Interpretation ABG results: PT/INR, D-dimer PT 14.1 Seconds (9.4-12.1) H 07/17/18 19:27 - Impressions Impressions Echocardiogram 07/18/18 04:02 Impressions: LVEF 60%. Mild left ventricular diastolic dysfunction. Normal LV chamber size, wall thickness. Normal right ventricular structure and function. Moderately sclerotic aortic valve leaflets. Mild aortic stenosis. Unable to estimate RVSP due to lack of TR jet. Left Ventricular Wall Motion: Rest Echo Findings All wall segments showed normal motion. Findings: Study Quality * Technically adequate exam. ECG Findings * Normal sinus rhythm. Left Ventricle * LVEF 60%. * Mild left ventricular diastolic dysfunction. * Normal LV chamber size, wall thickness. Right Ventricle * Normal right ventricular structure and function. Left Atrium * Normal left atrial size. Right Atrium * Normal right atrial size. Interatrial Septum * Interatrial septum not well evaluated. Aortic Valve * Trileaflet aortic valve. * Moderately sclerotic aortic valve leaflets. * No aortic regurgitation. * Mild aortic stenosis. Mitral Valve * No mitral stenosis. * Trace mitral regurgitation. * Mildly thickened mitral valve leaflets. Tricuspid Valve * Trace tricuspid regurgitation. * No tricuspid stenosis. * Normal tricuspid valve structure. * Unable to estimate RVSP due to lack of TR jet. Pulmonic Valve * Normal pulmonic valve structure. * No pulmonic regurgitation. Aorta * Normally sized aortic root. Pericardium * The pericardium appears normal. IVC * Normal IVC dimensions and inspiratory collapse. Pulmonary Artery * Normal visualized portions of the main pulmonary artery. 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
[2018-07-20] MEDS: Insulin LISPRO 300 UNITS/3 ML VIAL SQ SCH ×5 (04:51→22:03)
[2018-07-20] MEDS: OXYCODONE Oral CONC 10 MG/0.5 ML ORAL.SYG SL PRN (05:03)
[2018-07-20] MEDS: Piperacillin/Tazobactam 3.375 GM in 0.9 % Sodium Chloride Mini Bag 100 ML IVPB SCH ×3 (05:04→19:54)
[2018-07-20] MEDS: Pantoprazole 40 MG VIAL IVP SCH (05:04)
[2018-07-20 05:28] LABS: Hematocrit 40.4 % (35.3-44.9); Hemoglobin 13.2 g/dL (11.5-15.4); Mean Corpuscular HGB Conc 32.7 g/dL (31.6-35.5); Mean Corpuscular Hemoglobin 29.8 pg (28.0-33.3); Mean Corpuscular Volume 91.2 fL (83.0-100.0); Mean Platelet Volume 9.2 fL (9.4-12.4); Platelet Count 197 K/mcL (140-400); Red Blood Count 4.43 M/mcL (3.82-4.97); Red Cell Distribution Width 13.3 % (11.5-14.5)
[2018-07-20 05:49] LABS: BUN/Creatinine Ratio 28 (6-26); Blood Urea Nitrogen 11 mg/dL (8-23); Calcium 8.8 mg/dL (8.6-10.3); Carbon Dioxide 23 mEq/L (23-29); Chloride 106 mEq/L (98-107); Glucose 156 mg/dL (70-105); Osmolality,Calculated 289 (280-300); Potassium 3.7 mEq/L (3.5-5.1); Sodium 138 mEq/L (136-145); eGFR For Non-African Americans > 60 (> 60)
--- NOTE | 2018-07-20 07:30 | General Surgery Progress Note ---
<Geovanna Lyon - Last Filed: 07/20/18 07:59> Date of Encounter: 07/20/18 Time of Encounter: 07:30 - Assessment and Plan (1) Ruptured appendicitis Current Visit: Yes Status: Acute Admitted on 07/17/2018 for ruptured appendicitis. s/p IR aspiration 07/18/2018 aprox 17 ml purulent fluid removed. Micro to date with E-coli and gram neg carmen Continue supportive care and discomfort management continue IV antibiotics; WBC slowly decreasing. Will add Diflucan given continued intermitten fevers. If she is afebrile after 1500 today, can start CLD . repeat a.m. labs out of bed to chair TID Patient may shower we will continue to follow closely with the primary team. Subjective Patient reports: no new complaints, feels better, still having pain, pain is less, voiding w/o difficulty, flatus, no bowel movement, afebrile Objective Vital Signs - Last 8 Hours Temp Pulse Resp BP Pulse Ox 07/20/18 06:46 98.4 F 91 18 157/80 93 07/20/18 05:11 98.2 F 87 17 136/72 91 Intake and Output 07/19/18 07/19/18 07/20/18 15:59 23:59 07:59 Intake Total 460 / 460 100 / 100 100 / 100 Output Total 400 / 400 100 / 100 Balance 60 / 60 100 / 100 0 / 0 Intake: IV Fluids 100 / 100 100 / 100 100 / 100 Zosyn 3.375 GM In 0.9 % Sodium 100 / 100 100 / 100 100 / 100 Chloride (Mini-Bag +) 100 ML @ 25 mls/hr IVPB Q8H [facility] Rx#: [id number] Oral 360 / 360 Output: Urine 400 / 400 100 / 100 Other: Meal NPO NPO # Voids 1 Weight 92.7 kg Blood Glucose* 206 155 159 Patient Weight 07/20/18 23:59 Weight 92.7 kg - General physical appearance well developed, well nourished, no distress - Eyes normal ocular movement - ENT normal nares, normal mucosa, atraumatic - Neck Neck exam: trachea midline - Respiratory normal expansion, normal respiratory effort, clear to auscultation - Cardiovascular Cardiovascular exam: Present: RRR - Abdomen Abdomen: Present: bowel sounds present, soft, tender. Absent: guarding Abdominal Tenderness: RLQ Hernia: none - Integumentary no rash, no growths - Neurologic normal coordination, normal sensation - Musculoskeletal normal gait, normal posture - Psychiatric oriented to time, oriented to person, oriented to place, speech is normal, memory intact - Labs 07/20/18 05:16 07/20/18 05:16 Diabetes panel 07/20/18 Range/Units 05:16 Sodium 138 (136-145) mEq/L Potassium 3.7 (3.5-5.1) mEq/L Chloride 106 (98-107) mEq/L Carbon Dioxide 23 (23-29) mEq/L BUN 11 (8-23) mg/dL Creatinine 0.39 L (0.60-1.20) mg/dL Glucose 156 H (70-105) mg/dL Calcium 8.8 (8.6-10.3) mg/dL Calcium panel 07/20/18 Range/Units 05:16 Calcium 8.8 (8.6-10.3) mg/dL Pituitary panel 07/20/18 Range/Units 05:16 Sodium 138 (136-145) mEq/L Potassium 3.7 (3.5-5.1) mEq/L Chloride 106 (98-107) mEq/L Carbon Dioxide 23 (23-29) mEq/L BUN 11 (8-23) mg/dL Creatinine 0.39 L (0.60-1.20) mg/dL Glucose 156 H (70-105) mg/dL Calcium 8.8 (8.6-10.3) mg/dL Adrenal panel 07/20/18 Range/Units 05:16 Sodium 138 (136-145) mEq/L Potassium 3.7 (3.5-5.1) mEq/L Chloride 106 (98-107) mEq/L Carbon Dioxide 23 (23-29) mEq/L BUN 11 (8-23) mg/dL Creatinine 0.39 L (0.60-1.20) mg/dL Glucose 156 H (70-105) mg/dL Calcium 8.8 (8.6-10.3) mg/dL Consult Discharge Plan - Plan Referrals: Sherry Fermin, [employer] [Primary Care Provider] - <Tramaine Sigala - Last Filed: 07/20/18 09:51> Date of Encounter: 07/20/18 - Assessment and Plan (1) Ruptured appendicitis Current Visit: Yes Status: Acute Objective Vital Signs - Last 8 Hours Temp Pulse Resp BP Pulse Ox 07/20/18 06:46 98.4 F 91 18 157/80 93 07/20/18 05:11 98.2 F 87 17 136/72 91 Intake and Output 07/19/18 07/20/18 07/20/18 23:59 07:59 15:59 Intake Total 100 / 100 100 / 100 0 / 0 Output Total 100 / 100 Balance 100 / 100 0 / 0 0 / 0 Intake: IV Fluids 100 / 100 100 / 100 Zosyn 3.375 GM In 0.9 % Sodium 100 / 100 100 / 100 Chloride (Mini-Bag +) 100 ML @ 25 mls/hr IVPB Q8H [facility] Rx#: [id number] Oral 0 / 0 Output: Urine 100 / 100 Other: Meal NPO NPO # Voids 1 1 Weight 92.7 kg Blood Glucose* 155 159 Patient Weight 07/20/18 23:59 Weight 92.7 kg - Labs 07/20/18 05:16 07/20/18 05:16 Diabetes panel 07/20/18 Range/Units 05:16 Sodium 138 (136-145) mEq/L Potassium 3.7 (3.5-5.1) mEq/L Chloride 106 (98-107) mEq/L Carbon Dioxide 23 (23-29) mEq/L BUN 11 (8-23) mg/dL Creatinine 0.39 L (0.60-1.20) mg/dL Glucose 156 H (70-105) mg/dL Calcium 8.8 (8.6-10.3) mg/dL Calcium panel 07/20/18 Range/Units 05:16 Calcium 8.8 (8.6-10.3) mg/dL Pituitary panel 07/20/18 Range/Units 05:16 Sodium 138 (136-145) mEq/L Potassium 3.7 (3.5-5.1) mEq/L Chloride 106 (98-107) mEq/L Carbon Dioxide 23 (23-29) mEq/L BUN 11 (8-23) mg/dL Creatinine 0.39 L (0.60-1.20) mg/dL Glucose 156 H (70-105) mg/dL Calcium 8.8 (8.6-10.3) mg/dL Adrenal panel 07/20/18 Range/Units 05:16 Sodium 138 (136-145) mEq/L Potassium 3.7 (3.5-5.1) mEq/L Chloride 106 (98-107) mEq/L Carbon Dioxide 23 (23-29) mEq/L BUN 11 (8-23) mg/dL Creatinine 0.39 L (0.60-1.20) mg/dL Glucose 156 H (70-105) mg/dL Calcium 8.8 (8.6-10.3) mg/dL - Attending Attestation patient seen and examined. i have reviewed all labs, imaging, and notes. i agree with the above assessment and plan and wish to add the following... hold on diflucan unless temp at 100.4 or greater if doing well, can have sips of clears (300cc qshift, non carbonated, non sweetened) for dinner await final sensitivities for cultures cont to trend wbc
[2018-07-20] MEDS: Fluconazole 200 MG/100 ML 200 MG/100 ML BAG IVPB SCH (08:34)
--- NOTE | 2018-07-20 09:47 | Internal Med Progress Note ---
Hospitalist Progress Note - Encounter Date of Encounter: 07/20/18 Time of Encounter: 09:45 - Subjective Interval History: patient was seen and examined at bedside. reports that her pain has improved, denies fever of chills overnight. is inquiring about diet. all questions answered. has had no BM. denies fever or chills, CP or SOB - Exam Vitals: Temp Pulse Resp BP Pulse Ox 98.4 F 91 18 157/80 93 07/20/18 06:46 07/20/18 06:46 07/20/18 06:46 07/20/18 06:46 07/20/18 06:46 Exam: General: lying in bed asleep, no apparent distress. HEENT: Atraumatic, normocephalic, Pupils PERLL with EOMI, dry mucous membranes Neck: soft, full range of motion, no lymphadenopathy Cardio: regular rathe and rhythm, 3/6 systolic murmur present, loudest over aorta Respiratory: clear to ausculation bilateral, no wheezing, crackles, or rhonchi Abdomen: Soft, obese, tenderness to palpation worsen at the RLQ- improved no guarding, no rebound Extremities: No swelling or edema, 2+ peripheral pulses Neuro: Alert and oriented to person, place, and situation. No focal deficients Psych: conversant and pleasant, appropriate mood and affect - Assessment and Plan (1) Ruptured appendicitis Current Visit: Yes Status: Acute Assessment and Plan: Ruptured appendicitis on CT abdomen/pelvis with associated fluid collection 3.3 x 3.8 cm s/p IR drainage on 07/18 Meeting sepsis criteria with HR>100 and leukocytosis of 30K Lactate within normal limits surgery on board body fluid cx with pyle sensitive E.coli and gram negative rods to remain NPO on Zosyn, diflucan added IV fluids prn antiemetic pain management BCx NGTD follow AM CBC (2) Sepsis Current Visit: Yes Status: Acute Assessment and Plan: secondary to above management as per above (3) Diabetes mellitus Current Visit: Yes Status: Acute Assessment and Plan: Hold home metformin Start Sliding scale insulin and Q6H accu-checks (4) Peripheral neuropathy Current Visit: Yes Status: Acute Assessment and Plan: Hold home gabapentin while NPO (5) Systolic murmur Current Visit: Yes Status: Acute Assessment and Plan: documented on admission most likely from sclerotic aortic valve LVEF 60%. Mild left ventricular diastolic dysfunction. Normal LV chamber size, wall thickness. Normal right ventricular structure and function. Moderately sclerotic aortic valve leaflets. Mild aortic stenosis. Unable to estimate RVSP due to lack of TR jet. (6) DVT prophylaxis Current Visit: Yes Status: Acute Assessment and Plan: scds - Time Spent with Patient Total time spent is greater than 50% in coordination of care (as documented) at patient's floor/unit and/or counseling patient: Internal Medicine: Result - Labs CBC & Chem 7: 07/20/18 05:16 07/20/18 05:16 Labs: Short CBC 07/20/18 Range/Units 05:16 WBC 14.3 H (4.3-11.1) K/mcL Hgb 13.2 (11.5-15.4) g/dL Hct 40.4 (35.3-44.9) % Plt Count 197 (140-400) K/mcL BMP 07/20/18 05:16 Sodium 138 Potassium 3.7 Chloride 106 Carbon Dioxide 23 BUN 11 Creatinine 0.39 L Glucose 156 H Calcium 8.8 - ABG Interpretation ABG results: PT/INR, D-dimer PT 14.1 Seconds (9.4-12.1) H 07/17/18 19:27 Consult Discharge Plan - Plan Referrals: Sherry Fermin, [employer] [Primary Care Provider] - (2) Sepsis Qualifiers: Sepsis type: sepsis due to unspecified organism Qualified Code(s): A41.9 - Sepsis, unspecified organism (3) Diabetes mellitus Qualifiers: Diabetes mellitus type: type 2 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
[2018-07-21 05:04] LABS: Basophils # 0.1 K/mcL (0.0-0.2); Basophils % 0.5 %; Eosinophils # 0.2 K/mcL (0.0-0.6); Eosinophils % 1.2 %; Hemoglobin 12.8 g/dL (11.5-15.4); Immature Granulocytes % 0.6 % (0-4); Lymphocytes % 13.6 %; Mean Corpuscular HGB Conc 33.7 g/dL (31.6-35.5); Mean Corpuscular Hemoglobin 30.5 pg (28.0-33.3); Mean Corpuscular Volume 90.7 fL (83.0-100.0); Mean Platelet Volume 9.6 fL (9.4-12.4); Monocytes # 1.2 K/mcL (0.0-1.3); Monocytes % 8.5 %; Platelet Count 215 K/mcL (140-400); Red Blood Count 4.19 M/mcL (3.82-4.97); Red Cell Distribution Width 13.2 % (11.5-14.5); Segmented Neutrophils % 75.6 %
[2018-07-21] MEDS: Piperacillin/Tazobactam 3.375 GM in 0.9 % Sodium Chloride Mini Bag 100 ML IVPB SCH ×3 (05:13→20:21)
[2018-07-21] MEDS: Pantoprazole 40 MG VIAL IVP SCH (05:13)
[2018-07-21 05:19] LABS: BUN/Creatinine Ratio 22 (6-26); Blood Urea Nitrogen 8 mg/dL (8-23); Carbon Dioxide 25 mEq/L (23-29); Chloride 104 mEq/L (98-107); Glucose 151 mg/dL (70-105); Osmolality,Calculated 283 (280-300); Potassium 3.4 mEq/L (3.5-5.1); Sodium 136 mEq/L (136-145); eGFR For Non-African Americans > 60 (> 60)
[2018-07-21 05:44] LABS: Platelet Estimate Normal (Normal); Reactive Lymphocytes Present (Not Present)
[2018-07-21] MEDS ORDERED: Potassium Chloride 20 MEQ, Lidocaine 1% 2 ML in D5% in Water 250 ML IVPB ONE (07:10)
--- NOTE | 2018-07-21 07:35 | General Surgery Progress Note ---
Date of Encounter: 07/21/18 Time of Encounter: 07:33 - Assessment and Plan (1) Ruptured appendicitis Current Visit: Yes Status: Acute 68F with ruptured appendicitis; still having pain, but less than before, afebrile, (+)flatus; WBC still elevated but trending down (was 30+ with 18% bands, now at 14.6, no bandemia) adv diet to FLD today; do not advance further today plan for soft diet on 07/22 IVF: SLIV when tolerating PO IV abx; transition to PO augmentin 875/125 BID; recommend 2 week course after discharge no need to check WBC activity as tolerated will continue to follow possible d/c on 07/22 Subjective Patient reports: no new complaints, feels better, still having pain, pain is less, tolerating liquids well, flatus, bowel movement, afebrile Objective Vital Signs - Last 8 Hours Temp Pulse Resp BP Pulse Ox 07/21/18 07:12 98.4 F 85 15 133/79 93 07/21/18 04:00 98.3 F 86 15 151/76 95 Intake and Output 07/20/18 07/20/18 07/21/18 15:59 23:59 07:59 Intake Total 200 / 200 960 / 960 500 / 500 Output Total 100 / 100 1000 / 1000 500 / 500 Balance 100 / 100 -40 / -40 0 / 0 Intake: IV Fluids 200 / 200 200 / 200 Diflucan Premix 200 MG/100 ML 100 / 100 200 mg In 100 ml @ 100 mls/hr IVPB DAILY [facility] Rx#:[id number] Zosyn 3.375 GM In 0.9 % Sodium 100 / 100 200 / 200 Chloride (Mini-Bag +) 100 ML @ 25 mls/hr IVPB Q8H [facility] Rx#: [id number] Oral 0 / 0 760 / 760 500 / 500 Output: Urine 100 / 100 1000 / 1000 500 / 500 Other: Meal NPO Dinner Percent of Meal Consumed 50% # Voids 1 # Bowel Movements 0 0 Weight 90.7 kg Blood Glucose* 165 142 Patient Weight 07/21/18 23:59 Weight 90.7 kg - General physical appearance no distress - Respiratory normal expansion, normal respiratory effort - Cardiovascular Cardiovascular exam: Present: RRR - Abdomen Abdomen: Present: soft, tender (non peritoneal; decreased tenderness) Abdominal Tenderness: RLQ, suprapubic - Neurologic CN 2-12 grossly intact - Musculoskeletal normal posture - Psychiatric oriented to time, oriented to person, oriented to place - Labs 07/21/18 03:52 07/21/18 03:52 Diabetes panel 07/21/18 Range/Units 03:52 Sodium 136 (136-145) mEq/L Potassium 3.4 L (3.5-5.1) mEq/L Chloride 104 (98-107) mEq/L Carbon Dioxide 25 (23-29) mEq/L BUN 8 (8-23) mg/dL Creatinine 0.36 L (0.60-1.20) mg/dL Glucose 151 H (70-105) mg/dL Calcium 9.0 (8.6-10.3) mg/dL Calcium panel 07/21/18 Range/Units 03:52 Calcium 9.0 (8.6-10.3) mg/dL Pituitary panel 07/21/18 Range/Units 03:52 Sodium 136 (136-145) mEq/L Potassium 3.4 L (3.5-5.1) mEq/L Chloride 104 (98-107) mEq/L Carbon Dioxide 25 (23-29) mEq/L BUN 8 (8-23) mg/dL Creatinine 0.36 L (0.60-1.20) mg/dL Glucose 151 H (70-105) mg/dL Calcium 9.0 (8.6-10.3) mg/dL Adrenal panel 07/21/18 Range/Units 03:52 Sodium 136 (136-145) mEq/L Potassium 3.4 L (3.5-5.1) mEq/L Chloride 104 (98-107) mEq/L Carbon Dioxide 25 (23-29) mEq/L BUN 8 (8-23) mg/dL Creatinine 0.36 L (0.60-1.20) mg/dL Glucose 151 H (70-105) mg/dL Calcium 9.0 (8.6-10.3) mg/dL Consult Discharge Plan - Plan Referrals: Tramaine Sigala MD [Non-Partnered Physician] - 08/16/18 2:05 pm Sherry Fermin CNP [Primary Care Provider] -
[2018-07-21] MEDS: Insulin LISPRO 300 UNITS/3 ML VIAL SQ SCH ×4 (08:17→20:18)
[2018-07-21] MEDS: Fluconazole 200 MG/100 ML 200 MG/100 ML BAG IVPB SCH (08:18)
[2018-07-21] MEDS ORDERED: [UNRECOGNIZED DRUG - OTHER] PO SCH (09:00)
[2018-07-21] MEDS ORDERED: DHA PO SCH (09:00)
[2018-07-21] MEDS ORDERED: EPA PO SCH (09:00)
[2018-07-21] MEDS ORDERED: FISH OIL PO SCH (09:00)
[2018-07-21] MEDS: Multivit/Ca/Min/Fe/FA 1 TAB TABLET PO SCH (09:56)
[2018-07-21] MEDS: Cholecalciferol (D-3) 1,000 UNIT TABLET PO SCH (09:56)
[2018-07-21] MEDS: Ascorbic Acid 500 MG TABLET PO SCH (09:56)
[2018-07-21] MEDS: Gabapentin 100 MG CAPSULE PO SCH ×2 (09:57→20:21)
[2018-07-21] MEDS: Vitamin B Complex/Vit C/Vit E 1 EACH TABLET PO SCH (09:57)
--- NOTE | 2018-07-21 11:20 | Internal Med Progress Note ---
Hospitalist Progress Note - Encounter Date of Encounter: 07/21/18 Time of Encounter: 08:00 - Subjective Interval History: patient was seen and examined at bedside. reports that her pain has improved, denies fever of chills overnight. is inquiring about diet. all questions answered. has had no BM. denies fever or chills, CP or SOB - Exam Vitals: Temp Pulse Resp BP Pulse Ox 98.4 F 86 16 136/75 93 07/21/18 10:12 07/21/18 10:12 07/21/18 10:12 07/21/18 10:12 07/21/18 10:12 Exam: General: lying in bed asleep, no apparent distress. HEENT: Atraumatic, normocephalic, Pupils PERLL with EOMI, dry mucous membranes Neck: soft, full range of motion, no lymphadenopathy Cardio: regular rate and rhythm, systolic murmur Respiratory: clear to ausculation bilateral, no wheezing, crackles, or rhonchi Abdomen: Soft, obese, tenderness to palpation worsen at the RLQ- improved no guarding, no rebound Extremities: No swelling or edema, 2+ peripheral pulses Neuro: Alert and oriented to person, place, and situation. No focal deficients Psych: conversant and pleasant, appropriate mood and affect - Assessment and Plan (1) Ruptured appendicitis Current Visit: Yes Status: Acute Assessment and Plan: Ruptured appendicitis on CT abdomen/pelvis with associated fluid collection 3.3 x 3.8 cm s/p IR drainage on 07/18 Meeting sepsis criteria with HR>100 and leukocytosis of 30K Lactate within normal limits surgery on board body fluid cx with pyle sensitive E.coli and citrobacter farmeri starte don full liquids as she tolerated CLD on Zosyn, diflucan added IV fluids prn antiemetic pain management BCx NGTD will transition to PO abx on discharge (2) Sepsis Current Visit: Yes Status: Acute Assessment and Plan: secondary to above management as per above (3) Diabetes mellitus Current Visit: Yes Status: Acute Assessment and Plan: Hold home metformin Start Sliding scale insulin and Q6H accu-checks (4) Peripheral neuropathy Current Visit: Yes Status: Acute Assessment and Plan: Hold home gabapentin while NPO (5) Systolic murmur Current Visit: Yes Status: Acute Assessment and Plan: documented on admission most likely from sclerotic aortic valve LVEF 60%. Mild left ventricular diastolic dysfunction. Normal LV chamber size, wall thickness. Normal right ventricular structure and function. Moderately sclerotic aortic valve leaflets. Mild aortic stenosis. Unable to estimate RVSP due to lack of TR jet. (6) DVT prophylaxis Current Visit: Yes Status: Acute Assessment and Plan: scds - Time Spent with Patient Total time spent is greater than 50% in coordination of care (as documented) at patient's floor/unit and/or counseling patient: Internal Medicine: Result - Labs CBC & Chem 7: 07/21/18 03:52 07/21/18 03:52 Labs: Short CBC 07/21/18 Range/Units 03:52 WBC 14.6 H (4.3-11.1) K/mcL Hgb 12.8 (11.5-15.4) g/dL Hct 38.0 (35.3-44.9) % Plt Count 215 (140-400) K/mcL Neutrophils # 11.0 H (1.6-8.9) K/mcL BMP 07/21/18 03:52 Sodium 136 Potassium 3.4 L Chloride 104 Carbon Dioxide 25 BUN 8 Creatinine 0.36 L Glucose 151 H Calcium 9.0 - ABG Interpretation ABG results: PT/INR, D-dimer PT 14.1 Seconds (9.4-12.1) H 07/17/18 19:27 Consult Discharge Plan - Plan Referrals: Tramaine Sigala MD [Non-Partnered Physician] - 08/16/18 2:05 pm Sherry Fermin CNP [Primary Care Provider] - (2) Sepsis Qualifiers: Sepsis type: sepsis due to unspecified organism Qualified Code(s): A41.9 - Sepsis, unspecified organism (3) Diabetes mellitus Qualifiers: Diabetes mellitus type: type 2 Diabetes 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
[2018-07-22] MEDS: Piperacillin/Tazobactam 3.375 GM in 0.9 % Sodium Chloride Mini Bag 100 ML IVPB SCH ×3 (05:42→20:14)
[2018-07-22] MEDS: Pantoprazole 40 MG VIAL IVP SCH (05:42)
[2018-07-22] MEDS: Cholecalciferol (D-3) 1,000 UNIT TABLET PO SCH (08:32)
[2018-07-22] MEDS: Ascorbic Acid 500 MG TABLET PO SCH (08:32)
[2018-07-22] MEDS: Gabapentin 100 MG CAPSULE PO SCH ×2 (08:32→20:14)
[2018-07-22] MEDS: Vitamin B Complex/Vit C/Vit E 1 EACH TABLET PO SCH (08:32)
[2018-07-22] MEDS: Fluconazole 200 MG/100 ML 200 MG/100 ML BAG IVPB SCH (08:32)
[2018-07-22] MEDS: Multivit/Ca/Min/Fe/FA 1 TAB TABLET PO SCH (08:32)
[2018-07-22] MEDS: Insulin LISPRO 300 UNITS/3 ML VIAL SQ SCH ×4 (08:33→20:12)
--- NOTE | 2018-07-22 09:32 | Discharge Summary ---
- NOTES TO OUTPATIENT PROVIDER Notes to Outpatient Provider: follow up with surgery as OP Orders not resulted at time of discharge: Pending orders 07/17/18 20:24 Culture,Blood [BC] Stat 07/18/18 14:28 AFB Culture, Body Fluid [TB] Stat AFB Smear [TB] Stat Culture,Anaerobic [RM] Stat Fungal Culture [MYC] Stat Date of Encounter: 07/22/18 Time of Encounter: 09:30 - Discharge Diagnosis (1) Ruptured appendicitis Priority: Primary Status: Acute (2) Sepsis Priority: Secondary Status: Acute Qualifiers: Sepsis type: sepsis due to unspecified organism Qualified Code(s): A41.9 - Sepsis, unspecified organism (3) Diabetes mellitus Priority: Secondary Status: Acute Qualifiers: Diabetes mellitus type: type 2 Diabetes mellitus residential insulin use: without residential use Diabetes mellitus complication status: with unspecified complications Qualified Code(s): E11.8 - Type 2 diabetes mellitus with unspecified complications (4) Peripheral neuropathy Priority: Secondary Status: Acute Qualifiers: Peripheral neuropathy type: polyneuropathy, unspecified Qualified Code(s): G62.9 - Polyneuropathy, unspecified (5) Systolic murmur Priority: Secondary Status: Acute (6) DVT prophylaxis Priority: Secondary Status: Acute Hospital course: " Ms. Lyle is a 68 year old female with a history of non-insulin dependent diabetes and peripheral neuropathy. Presented to ED for evaluation of elevated blood sugars (200-300s) and abdominal pain. Reports that her glucose is usually in the low 100's. Abdominal pain, malaise, poor appetite, and mild nausea without vomiting for the past 2-3 days. Pain has been worsening and is now localizing to the RLQ. Reports low grade fever at home. Denies chest pain, palpitations, shortness of breath, change in bowel habits, vomiting, hemat ochezia, melena. CT abdomen and pelvis in the ED consistent with perforated appendicitis with 3.3 x 3.8 cm fluid collection. WBC elevated at 30K with bands present. Lactate WNL. Received IV zosyn. " patient presented with above presentation. surgery consulted and she underwent IR guided aspiration of the collection, was continued on IV Abx with significant improvement of her leukocytosis. diet was increased gradually adn she tolerated. she is to continue 14 day course of Abx as per surgery recommendations. she remained Afebrile for more than 48 hrs. Bcx NGTD, fungal cx pending, acid fast stain negative she understands that she will need to follow up with surgery as OP. she understands to return to the ED if she develops worsening abdominal pain or fever and etc. Discharge discussed with: patient, family, nurse, lean consultant - Time Spent with Patient Total time spent providing and/or coordinating discharge services: Greater than 30 minutes (35) - Discharge Medications Prescriptions: Amoxicillin/Clavulanate [Augmentin] 875 mg PO BIDWM 14 Days #28 tablet Home Medications: Ascorbic Acid [Vitamin C] 1,000 mg PO DAILY 07/17/18 [History] Cholecalciferol (Vitamin D3) [Vitamin D3] 2,000 unit PO DAILY 07/17/18 [History] Fish Oil/Dha/Epa [Fish Oil 1,200 mg Fish Oil] 3 cap PO DAILY 07/17/18 [History] Gabapentin [Neurontin] 200 mg PO BID 07/17/18 [History] Losartan Potassium 25 mg PO BID 07/17/18 [History] Magnesium 750 - 1,000 mg PO DAILY 07/17/18 [History] Metformin HCl 1,000 mg PO BID 07/17/18 [History] Multivitamin [One Daily] 1 tab PO DAILY 07/17/18 [History] Vitamin B Complex [Balanced B-50] 2 cap PO DAILY 07/17/18 [History] Amoxicillin/Clavulanate [Augmentin] 875 mg PO BIDWM 14 Days #28 tablet 07/22/18 [Rx] Allergies/Adverse Reactions: Allergy/AdvReac Type Severity Reaction Status Date / Time No Known Allergies Allergy Verified 07/17/18 18:23 Date of admission: 07/18/18 18:04 Primary care physician: Sherry Fermin CNP Consults: 07/17/18 21:47 Consult to Surgery [CONS] Stat Consulting Provider: [facility] Reason for Consult: ruptured appendicitis w/ abscess Time Notified: 21:47 Call Completed: Yes 07/17/18 21:53 Consult to Interventional Radiology [CONS] Stat Consulting Provider: Radiology Interventional Cols Reason for Consult: eval for drainage of periappendiceal abscess Call Completed: No - Constitutional Vitals: Temp Pulse Resp BP Pulse Ox 98.3 F 80 15 161/75 93 07/22/18 06:43 07/22/18 06:43 07/22/18 06:43 07/22/18 06:43 07/22/18 06:43 Exam: General: lying in bed asleep, no apparent distress. HEENT: Atraumatic, normocephalic, Pupils PERLL with EOMI, dry mucous membranes Neck: soft, full range of motion, no lymphadenopathy Cardio: regular rate and rhythm, systolic murmur Respiratory: clear to ausculation bilateral, no wheezing, crackles, or rhonchi Abdomen: Soft, obese, tenderness to palpation worsen at the RLQ- improved no guarding, no rebound Extremities: No swelling or edema, 2+ peripheral pulses Neuro: Alert and oriented to person, place, and situation. No focal deficients Psych: conversant and pleasant, appropriate mood and affect - Patient Status Disposition: Home, Self-Care Condition: Fair Functional capacity at discharge: independent ambulation Overall status at discharge: patient is progressing back to baseline - Discharge Instructions Instructions: Appendicitis (DC) Follow Up With: Tramaine Sigala MD [Non-Partnered Physician] - 08/16/18 2:05 pm Sherry Fermin CNP [Primary Care Provider] - - Diet and Activity Activity: increase activity as tolerated Diet: diabetic diet
[2018-07-22 11:26] LABS: Hematocrit 39.5 % (35.3-44.9); Hemoglobin 13.3 g/dL (11.5-15.4); Mean Corpuscular HGB Conc 33.7 g/dL (31.6-35.5); Mean Corpuscular Hemoglobin 30.6 pg (28.0-33.3); Mean Corpuscular Volume 90.8 fL (83.0-100.0); Mean Platelet Volume 9.4 fL (9.4-12.4); Platelet Count 223 K/mcL (140-400); Red Blood Count 4.35 M/mcL (3.82-4.97); Red Cell Distribution Width 13.1 % (11.5-14.5)
[2018-07-22 11:49] LABS: Eosinophils # 0.6 K/mcL (0.0-0.6); Lymphocytes # 3.2 K/mcL (0.6-4.6); Monocytes # 0.6 K/mcL (0.0-1.3); Neutrophils # 11.5 K/mcL (1.6-8.9)
[2018-07-22 11:50] LABS: Platelet Estimate Normal (Normal)
--- NOTE | 2018-07-22 12:19 | General Surgery Progress Note ---
Date of Encounter: 07/22/18 Time of Encounter: 12:16 - Assessment and Plan (1) Ruptured appendicitis Current Visit: Yes Status: Acute although patient is feeling better her wbc has increased recommend she stay in hospital today, continue antibiotics will advance diet to diabetic she is still having some pain in RLQ with palpation but she states it is im proved (2) Leukocytosis Current Visit: Yes Status: Acute wbc has increased today trend serial abdominal exams continue antibiotics Qualifiers: Leukocytosis type: unspecified Qualified Code(s): D72.829 - Elevated white blood cell count, unspecified (3) Diabetes mellitus Current Visit: Yes Status: Acute ok to adv diet to diabetic diet continue home meds Qualifiers: Diabetes mellitus type: type 2 Diabetes mellitus prison insulin use: without prison use Diabetes mellitus complication status: with unspecified complications Qualified Code(s): E11.8 - Type 2 diabetes mellitus with unspe cified complications (4) DVT prophylaxis Current Visit: Yes Status: Acute Subjective Patient reports: feels better, still having pain, pain is less, tolerating liquids well, flatus, no bowel movement, afebrile Objective Vital Signs - Last 8 Hours Temp Pulse Resp BP Pulse Ox 07/22/18 06:43 98.3 F 80 15 161/75 93 Intake and Output 07/21/18 07/22/18 07/22/18 23:59 07:59 15:59 Intake Total 920 / 920 400 / 400 Output Total 750 / 750 500 / 500 Balance 170 / 170 -100 / -100 Intake: IV Fluids 100 / 100 100 / 100 Zosyn 3.375 GM In 0.9 % Sodium 100 / 100 100 / 100 Chloride (Mini-Bag +) 100 ML @ 25 mls/hr IVPB Q8H [facility] Rx#: [id number] Oral 820 / 820 300 / 300 Output: Urine 750 / 750 500 / 500 Other: Meal Dinner Stool Size Small Stool Consistency soft Stool Color Brown Green # Voids 1 # Bowel Movements 1 Weight 90.9 kg Blood Glucose* 171 158 Patient Weight 07/22/18 23:59 Weight 90.9 kg - General physical appearance well developed, well nourished, no distress, no pain - Eyes PERRL, normal ocular movement - ENT normal mucosa, normocephalic - Neck Neck exam: trachea midline - Respiratory normal expansion, normal respiratory effort - Cardiovascular Cardiovascular exam: Present: RRR - Abdomen Abdomen: Present: bowel sounds present, soft, tender. Absent: distended, guarding, rebound Abdominal Tenderness: RLQ - Integumentary no rash, no growths - Neurologic CN 2-12 grossly intact - Musculoskeletal normal posture - Psychiatric oriented to time, oriented to person, oriented to place, memory intact - Labs 07/22/18 10:54 07/22/18 03:31 Diabetes panel 07/22/18 Range/Units 03:31 Potassium 3.5 (3.5-5.1) mEq/L Pituitary panel 07/22/18 Range/Units 03:31 Potassium 3.5 (3.5-5.1) mEq/L Adrenal panel 07/22/18 Range/Units 03:31 Potassium 3.5 (3.5-5.1) mEq/L Consult Discharge Plan - Plan Instructions: Appendicitis (DC) Referrals: Tramaine Sigala MD [Non-Partnered Physician] - 08/16/18 2:05 pm Sherry Fermin CNP [Primary Care Provider] - Prescriptions: Amoxicillin/Clavulanate [Augmentin] 875 mg PO BIDWM 14 Days #28 tablet
[2018-07-23] MEDS: Piperacillin/Tazobactam 3.375 GM in 0.9 % Sodium Chloride Mini Bag 100 ML IVPB SCH ×3 (05:05→20:30)
[2018-07-23 05:43] LABS: Basophils # 0.1 K/mcL (0.0-0.2); Basophils % 0.6 %; Eosinophils # 0.3 K/mcL (0.0-0.6); Eosinophils % 1.7 %; Hematocrit 39.2 % (35.3-44.9); Hemoglobin 13.3 g/dL (11.5-15.4); Immature Granulocytes % 1.5 % (0-4); Lymphocytes # 3.1 K/mcL (0.6-4.6); Lymphocytes % 20.2 %; Mean Corpuscular HGB Conc 33.9 g/dL (31.6-35.5); Mean Corpuscular Hemoglobin 30.5 pg (28.0-33.3); Mean Corpuscular Volume 89.9 fL (83.0-100.0); Mean Platelet Volume 9.5 fL (9.4-12.4); Monocytes # 1.4 K/mcL (0.0-1.3); Monocytes % 8.8 %; Neutrophils # 10.4 K/mcL (1.6-8.9); Platelet Count 237 K/mcL (140-400); Red Blood Count 4.36 M/mcL (3.82-4.97); Red Cell Distribution Width 13.2 % (11.5-14.5); Segmented Neutrophils % 67.2 %
[2018-07-23 06:11] LABS: Platelet Estimate Normal (Normal)
[2018-07-23] MEDS: Cholecalciferol (D-3) 1,000 UNIT TABLET PO SCH (08:01)
[2018-07-23] MEDS: Gabapentin 100 MG CAPSULE PO SCH ×2 (08:01→20:30)
[2018-07-23] MEDS: Ascorbic Acid 500 MG TABLET PO SCH (08:01)
[2018-07-23] MEDS: Multivit/Ca/Min/Fe/FA 1 TAB TABLET PO SCH (08:02)
[2018-07-23] MEDS: Vitamin B Complex/Vit C/Vit E 1 EACH TABLET PO SCH (08:02)
[2018-07-23] MEDS: Insulin LISPRO 300 UNITS/3 ML VIAL SQ SCH ×4 (08:02→20:32)
[2018-07-23] MEDS ORDERED: Isovue-370 500 ML BOTTLE IVP ONE (11:32)
--- NOTE | 2018-07-23 11:57 | Internal Med Progress Note ---
Hospitalist Progress Note - Encounter Date of Encounter: 07/23/18 Time of Encounter: 11:54 - Subjective Interval History: Seen and examined at bedside. Patient is new to me, information obtained from chart review and patient report. Overall says she feels better. She still having some right lower quadrant tenderness. Tolerating regular diet and did have a bowel movement. Discussed with Dr. Flores and planning on repeating ABD CT with persistent right lower quadrant tenderness and elevated WBC. - Exam Vitals: Temp Pulse Resp BP Pulse Ox 98.4 F 64 15 118/77 94 07/23/18 10:16 07/23/18 10:16 07/23/18 10:16 07/23/18 10:16 07/23/18 10:16 Exam: General: lying in bed, appears comfortable, no apparent distress. HEENT: Atraumatic, normocephalic, Pupils PERLL with EOMI, dry mucous membranes Neck: soft, full range of motion, no lymphadenopathy Cardio: regular rate and rhythm, systolic murmur Respiratory: clear to ausculation bilateral, no wheezing, crackles, or rhonchi Abdomen: Soft, obese, + RLQ ABD tenderness Extremities: No swelling or edema, 2+ peripheral pulses Neuro: Alert and oriented to person, place, and situation. No focal deficients Psych: conversant and pleasant, appropriate mood and affect - Assessment and Plan (1) Ruptured appendicitis Current Visit: Yes Status: Acute Assessment and Plan: presented with ABD pain. CT abdomen and pelvis consistent with perforated appendicitis with fluid collection. S/p IR drainage 07/18/2018. Fluid cultures with Escherichia coli and Citrobacter farmeri. Blood cx's negative. Cont IV Zosy n (day-5). Still with RLQ pain on 07/23 exam and repeat ABD CT pending. General Surgery following; await further recommendations (2) Diabetes mellitus Current Visit: Yes Status: Acute Assessment and Plan: per hx. Holding home oral hypoglycemics. SSI. Monitor blood sugar and titrate PRN. Hgb A1c pending (3) Peripheral neuropathy Current Visit: Yes Status: Acute Assessment and Plan: per hx. Cont home gabapentin (4) Systolic murmur Current Visit: Yes Status: Acute Assessment and Plan: documented on admission. Most likely from sclerotic aortic valve. 07/18/2018 TTE with EF 60%, moderately sclerotic aortic valve and mild aortic stenosis. (5) Sepsis Current Visit: Yes Status: Acute Assessment and Plan: Secondary to appendicitis. Plan as noted above. Sepsis now resolved. (6) HTN (hypertension) Current Visit: Yes Status: Acute Assessment and Plan: per hx. BP variable but overall controlled. Cont home BP medications. (7) DVT prophylaxis Current Visit: Yes Status: Acute Assessment and Plan: SCDs - Time Spent with Patient Total time spent is greater than 50% in coordination of care (as documented) at patient's floor/unit and/or counseling patient: Internal Medicine: Result - Labs CBC & Chem 7: 07/23/18 04:56 07/22/18 03:31 Labs: Short CBC 07/23/18 Range/Units 04:56 WBC 15.5 H (4.3-11.1) K/mcL Hgb 13.3 (11.5-15.4) g/dL Hct 39.2 (35.3-44.9) % Plt Count 237 (140-400) K/mcL Neutrophils # 10.4 H (1.6-8.9) K/mcL - ABG Interpretation ABG results: PT/INR, D-dimer PT 14.1 Seconds (9.4-12.1) H 07/17/18 19:27 Consult Discharge Plan - Plan Instructions: Appendicitis (DC) Referrals: Tramaine Sigala MD [Non-Partnered Physician] - 08/16/18 2:05 pm Sherry Fermin CNP [Primary Care Provider] - Prescriptions: Amoxicillin/Clavulanate [Augmentin] 875 mg PO BIDWM 14 Days #28 tablet (2) Diabetes mellitus Qualifiers: Diabetes mellitus type: type 2 Diabetes mellitus halfway insulin use: without halfway use Diabetes mellitus complication status: with unspecified complications Qualified Code(s): E11.8 - Type 2 diabetes mellitus with unspecified complications (3) Peripheral neuropathy Qualifiers: Peripheral neuropathy type: polyneuropathy, unspecified Qualified Code(s): G62.9 - Polyneuropathy, unspecified (5) Sepsis Qualifiers: Sepsis type: sepsis due to unspecified organism Qualified Code(s): A41.9 - Sepsis, unspecified organism
--- NOTE | 2018-07-23 14:31 | General Surgery Progress Note ---
Date of Encounter: 07/23/18 Time of Encounter: 14:31 - Assessment and Plan (1) Ruptured appendicitis Current Visit: Yes Status: Acute patiens wbc increased yday and stayed elevated today she is having worsening pain - mildly so have ordered CT abd/pelvis - increased abscess size, reconsulted IR for drain placement continue iv antibiotics, start diflucan prn pain control continue diet, npo midnight for drain placement (2) Leukocytosis Current Visit: Yes Status: Acute wbc increased trend continue antibiotics drain placement likely tomorrow Qualifiers: Leukocytosis type: unspecified Qualified Code(s): D72.829 - Elevated white blood cell count, unspecified (3) Diabetes mellitus Current Visit: Yes Status: Acute ok to adv diet to diabetic diet continue home meds Qualifiers: Diabetes mellitus type: type 2 Diabetes mellitus retirement insulin use: without retirement use Diabetes mellitus complication status: with unspecified complications Qualified Code(s): E11.8 - Type 2 diabetes mellitus with unspecified complications (4) DVT prophylaxis Current Visit: Yes Status: Acute Subjective Patient reports: tolerating a regular diet, flatus, bowel movement, afebrile Narrative: abdominal pain has increased and changed in location, more midabdomen Objective Vital Signs - Last 8 Hours Temp Pulse Resp BP Pulse Ox 07/23/18 14:23 98.0 F 83 15 170/81 94 07/23/18 10:16 98.4 F 64 15 118/77 94 07/23/18 06:32 98.2 F 83 15 151/79 93 Intake and Output 07/22/18 07/23/18 07/23/18 23:59 07:59 15:59 Intake Total 160 / 160 340 / 340 340 / 340 Output Total 800 / 800 Balance 160 / 160 -460 / -460 340 / 340 Intake: IV Fluids 100 / 100 100 / 100 100 / 100 Zosyn 3.375 GM In 0.9 % Sodium 100 / 100 100 / 100 100 / 100 Chloride (Mini-Bag +) 100 ML @ 25 mls/hr IVPB Q8H [facility] Rx#: [id number] Oral 60 / 60 240 / 240 240 / 240 Output: Urine 800 / 800 Other: Meal Lunch npo Percent of Meal Consumed 15% 100% Stool Size Small Stool Consistency formed Stool Color Brown # Voids 1 3 # Bowel Movements 1 Weight 89.5 kg Blood Glucose* 189 165 229 Patient Weight 07/23/18 23:59 Weight 89.5 kg - General physical appearance well developed, well nourished, no distress, moderate pain, obese - Eyes normal ocular movement - ENT normal mucosa, normocephalic - Neck Neck exam: trachea midline - Respiratory normal expansion, clear to auscultation - Cardiovascular Cardiovascular exam: Present: RRR - Abdomen Abdomen: Present: soft, tender Abdominal Tenderness: RLQ (midabdomen) - Integumentary no rash, no growths - Neurologic CN 2-12 grossly intact - Musculoskeletal normal posture - Psychiatric oriented to time, oriented to person, oriented to place, speech is normal, memory intact - Labs 07/23/18 04:56 07/22/18 03:31 Consult Discharge Plan - Plan Instructions: Appendicitis (DC) Referrals: Tramaine Sigala MD [Non-Partnered Physician] - 08/16/18 2:05 pm Sherry Fermin [employer] [Primary Care Provider] - Prescriptions: Amoxicillin/Clavulanate [Augmentin] 875 mg PO BIDWM 14 Days #28 tablet
[2018-07-23] MEDS: Fluconazole 200 MG/100 ML 200 MG/100 ML BAG IVPB SCH (14:58)
[2018-07-23] MEDS: OXYCODONE Oral CONC 10 MG/0.5 ML ORAL.SYG SL PRN (22:31)
[2018-07-24 04:47] LABS: Hematocrit 39.9 % (35.3-44.9); Hemoglobin 13.3 g/dL (11.5-15.4); Mean Corpuscular HGB Conc 33.3 g/dL (31.6-35.5); Mean Corpuscular Hemoglobin 30.2 pg (28.0-33.3); Mean Corpuscular Volume 90.5 fL (83.0-100.0); Platelet Count 205 K/mcL (140-400); Red Blood Count 4.41 M/mcL (3.82-4.97)
[2018-07-24] MEDS: Piperacillin/Tazobactam 3.375 GM in 0.9 % Sodium Chloride Mini Bag 100 ML IVPB SCH ×3 (04:51→20:37)
[2018-07-24 05:01] LABS: BUN/Creatinine Ratio 23 (6-26); Blood Urea Nitrogen 10 mg/dL (8-23); Calcium 8.9 mg/dL (8.6-10.3); Carbon Dioxide 26 mEq/L (23-29); Chloride 106 mEq/L (98-107); Glucose 173 mg/dL (70-105); Osmolality,Calculated 291 (280-300); Potassium 4.1 mEq/L (3.5-5.1); Sodium 139 mEq/L (136-145); eGFR For Non-African Americans > 60 (> 60)
[2018-07-24 09:23] LABS: Estimated Average Glucose 160 mg/dl; Hemoglobin A1C 7.2 %
[2018-07-24] MEDS: Vitamin B Complex/Vit C/Vit E 1 EACH TABLET PO SCH (09:44)
[2018-07-24] MEDS: Ascorbic Acid 500 MG TABLET PO SCH (09:44)
[2018-07-24] MEDS: Cholecalciferol (D-3) 1,000 UNIT TABLET PO SCH (09:44)
[2018-07-24] MEDS: Multivit/Ca/Min/Fe/FA 1 TAB TABLET PO SCH (09:44)
[2018-07-24] MEDS: Gabapentin 100 MG CAPSULE PO SCH ×2 (09:45→20:08)
[2018-07-24] MEDS: Fluconazole 200 MG/100 ML 200 MG/100 ML BAG IVPB SCH (09:46)
--- NOTE | 2018-07-24 09:48 | General Surgery Progress Note ---
<Janet Dee - Last Filed: 07/24/18 09:46> Date of Encounter: 07/24/18 Time of Encounter: 09:46 - Assessment and Plan (1) Ruptured appendicitis Current Visit: Yes Status: Acute NPO for IR procedure today- drain placement IV antibiotics- Zosyn and Diflucan 0.9NS- during NPO period Supportive care and pain control PPI therpay daily DVT prophylaxis (2) Leukocytosis Current Visit: Yes Status: Acute 15.9>15.5>14.4 IV antibiotics- Zosyn and Diflucan IR drain placement today Repeat am labs Qualifiers: Leukocytosis type: unspecified Qualified Code(s): D72.829 - Elevated white blood cell count, unspecified (3) Diabetes mellitus Current Visit: Yes Status: Acute Hyperglycemia Management per primary team Qualifiers: Diabetes mellitus type: type 2 Diabetes mellitus watermaster insulin use: without watermaster use Diabetes mellitus complication status: with unspecified complications Qualified Code(s): E11.8 - Type 2 diabetes mellitus with unspecified complications (4) HTN (hypertension) Current Visit: Yes Status: Acute Normotensive Management per primary team Qualifiers: Hypertension type: essential hypertension Qualified Code(s): I10 - Essential (primary) hypertension (5) DVT prophylaxis Current Visit: Yes Status: Acute EPCDs to bilateral lower extremities for DVT prophylaxis Ambulate hallways TID with assistance Subjective Patient reports: still having pain (right sided), tolerating a regular diet (NPO for procedure), voiding w/o difficulty, flatus, afebrile, other (patient feels bloated) Objective Vital Signs - Last 8 Hours Temp Pulse Resp BP Pulse Ox 07/24/18 06:29 98.3 F 85 16 117/83 90 07/24/18 03:40 97.6 F 79 15 161/74 92 Intake and Output 07/23/18 07/24/18 07/24/18 23:59 07:59 15:59 Intake Total 200 / 200 100 / 100 100 / 100 Output Total 200 / 200 Balance 200 / 200 -100 / -100 100 / 100 Intake: IV Fluids 200 / 200 100 / 100 100 / 100 Diflucan Premix 200 MG/100 ML 100 / 100 200 mg In 100 ml @ 100 mls/hr IVPB DAILY [facility] Rx#:[id number] Zosyn 3.375 GM In 0.9 % Sodium 100 / 100 100 / 100 100 / 100 Chloride (Mini-Bag +) 100 ML @ 25 mls/hr IVPB Q8H [facility] Rx#: [id number] Oral 0 / 0 0 / 0 Output: Urine 200 / 200 Other: Meal Dinner Percent of Meal Consumed 80% # Voids 2 2 Weight 85.3 kg Blood Glucose* 179 172 Patient Weight 07/24/18 23:59 Weight 85.3 kg - General physical appearance well developed, well nourished, no distress, moderate pain (right sided) - Eyes normal ocular movement - ENT normal mucosa, atraumatic, normocephalic - Neck Neck exam: trachea midline - Respiratory normal respiratory effort, clear to auscultation - Cardiovascular Cardiovascular exam: Present: RRR, murmurs - Abdomen Abdomen: Present: bowel sounds present, soft, tender Abdominal Tenderness: RLQ - Neurologic CN 2-12 grossly intact - Musculoskeletal normal gait, normal posture - Psychiatric oriented to time, oriented to person, oriented to place, speech is normal, memory intact - Labs 07/24/18 04:33 07/24/18 04:33 Diabetes panel 07/24/18 07/24/18 Range/Units 04:33 04:33 Sodium 139 (136-145) mEq/L Potassium 4.1 (3.5-5.1) mEq/L Chloride 106 (98-107) mEq/L Carbon Dioxide 26 (23-29) mEq/L BUN 10 (8-23) mg/dL Creatinine 0.44 L (0.60-1.20) mg/dL Glucose 173 H (70-105) mg/dL Hemoglobin A1c 7.2 H ( - 5.6) % Calcium 8.9 (8.6-10.3) mg/dL Calcium panel 07/24/18 Range/Units 04:33 Calcium 8.9 (8.6-10.3) mg/dL Pituitary panel 07/24/18 Range/Units 04:33 Sodium 139 (136-145) mEq/L Potassium 4.1 (3.5-5.1) mEq/L Chloride 106 (98-107) mEq/L Carbon Dioxide 26 (23-29) mEq/L BUN 10 (8-23) mg/dL Creatinine 0.44 L (0.60-1.20) mg/dL Glucose 173 H (70-105) mg/dL Calcium 8.9 (8.6-10.3) mg/dL Adrenal panel 07/24/18 Range/Units 04:33 Sodium 139 (136-145) mEq/L Potassium 4.1 (3.5-5.1) mEq/L Chloride 106 (98-107) mEq/L Carbon Dioxide 26 (23-29) mEq/L BUN 10 (8-23) mg/dL Creatinine 0.44 L (0.60-1.20) mg/dL Glucose 173 H (70-105) mg/dL Calcium 8.9 (8.6-10.3) mg/dL Consult Discharge Plan - Plan Instructions: Appendicitis (DC) Additional Instructions: Daily Drain Care: remove dressings. Suspend drain on a lanyard or string around your neck for shower. Shower with antibacterial soap daily. Pat skin dry. Apply split gauze. Tape to secure. Twice Daily Drain Management: Turn the stopcock off to patient. Empty SHEELA bulb into a specimen cup. Record the drainage. Flush the line with 10 mL normal saline towards the bulb (AWAY FROM BODY). Empty the SHEELA bulb into the specimen cup and do NOT record this drainage. Replace the. Turn the stopcock to off to air. Referrals: Tramaine Sigala MD [Non-Partnered Physician] - 08/07/18 9:00 am Prescriptions: Amoxicillin/Clavulanate [Augmentin] 875 mg PO BIDWM 14 Days #28 tablet Fluconazole [Diflucan] 100 mg PO DAILY 14 Days #14 tablet <Tramaine Sigala - Last Filed: 07/25/18 13:29> Date of Encounter: 07/25/18 - Assessment and Plan (1) Ruptured appendicitis Current Visit: Yes Status: Acute Objective Vital Signs - Last 8 Hours Temp Pulse Resp BP Pulse Ox 07/25/18 07:20 98.0 F 78 16 137/75 93 Intake and Output 07/24/18 07/25/18 07/25/18 23:59 07:59 15:59 Intake Total 620 / 620 100 / 100 120 / 120 Output Total 415 / 415 570 / 570 Balance 205 / 205 -470 / -470 120 / 120 Intake: IV Fluids 620 / 620 100 / 100 0.9 % Sodium Chloride 1,000 ML 420 / 420 @ 75 mls/hr IVC .[id number] [facility] Rx #:[id number] Zosyn 3.375 GM In 0.9 % Sodium 100 / 100 100 / 100 Chloride (Mini-Bag +) 100 ML @ 25 mls/hr IVPB Q8H [facility] Rx#: [id number] Oral 0 / 0 0 / 0 120 / 120 Output: Urine 400 / 400 550 / 550 Wound Drainage Right Lower Abdomen Other: Meal Dinner Breakfast Percent of Meal Consumed 75% 100% # Voids 1 Weight 85.3 kg Blood Glucose* 156 142 Patient Weight 07/25/18 23:59 Weight 85.3 kg - Labs 07/25/18 03:26 07/25/18 03:26 Diabetes panel 07/25/18 Range/Units 03:26 Sodium 136 (136-145) mEq/L Potassium 3.8 (3.5-5.1) mEq/L Chloride 103 (98-107) mEq/L Carbon Dioxide 26 (23-29) mEq/L BUN 9 (8-23) mg/dL Creatinine 0.37 L (0.60-1.20) mg/dL Glucose 146 H (70-105) mg/dL Calcium 8.8 (8.6-10.3) mg/dL Calcium panel 07/25/18 Range/Units 03:26 Calcium 8.8 (8.6-10.3) mg/dL Pituitary panel 07/25/18 Range/Units 03:26 Sodium 136 (136-145) mEq/L Potassium 3.8 (3.5-5.1) mEq/L Chloride 103 (98-107) mEq/L Carbon Dioxide 26 (23-29) mEq/L BUN 9 (8-23) mg/dL Creatinine 0.37 L (0.60-1.20) mg/dL Glucose 146 H (70-105) mg/dL Calcium 8.8 (8.6-10.3) mg/dL Adrenal panel 07/25/18 Range/Units 03:26 Sodium 136 (136-145) mEq/L Potassium 3.8 (3.5-5.1) mEq/L Chloride 103 (98-107) mEq/L Carbon Dioxide 26 (23-29) mEq/L BUN 9 (8-23) mg/dL Creatinine 0.37 L (0.60-1.20) mg/dL Glucose 146 H (70-105) mg/dL Calcium 8.8 (8.6-10.3) mg/dL - Attending Attestation patient seen and examined. i have reviewed all labs, imaging, and notes. I agree with the above assessment and plan and wish to add the following... WBC increased/elevated over the weekend; abscess found on CT scan; will need drain placed by IR;
[2018-07-24] MEDS: Insulin LISPRO 300 UNITS/3 ML VIAL SQ SCH ×4 (09:52→20:00)
[2018-07-24] MEDS ORDERED: 0.9 % Sodium Chloride 1,000 ML IVC SCH (10:30)
--- NOTE | 2018-07-24 10:57 | Internal Med Progress Note ---
Hospitalist Progress Note - Encounter Date of Encounter: 07/24/18 Time of Encounter: 08:30 - Subjective Interval History: Hospital course reviewed. Patient initially presented with ruptured appendicitis with abscess and underwent IR guided drainage on 07/18. Culture growing E. coli, citrobacter, and anaerobic GNR. WBC persistently elevated despite drainage along with RLQ discomfort hence repeat CT was done yesterday which revealed redemonstration of ruptured appendicitis and right lower quadrant abscess which had increased in size. Plan for repeat IR guided drainage today. No fever/chills. - Exam Vitals: Temp Pulse Resp BP Pulse Ox 98.3 F 85 16 117/83 90 07/24/18 06:29 07/24/18 06:29 07/24/18 06:29 07/24/18 06:29 07/24/18 06:29 Exam: General: lying in bed, appears comfortable, no apparent distress. Cardio: regular rate and rhythm Respiratory: clear to ausculation bilaterally, no wheezing, crackles, or rhonchi Abdomen: Soft, obese, mild RLQ ABD tenderness without rebound. Initial puncture site dry and clean. Neuro: No focal deficits - Assessment and Plan (1) Ruptured appendicitis Current Visit: Yes Status: Acute Assessment and Plan: complicated by abscess formation s/p drainage on 07/18 fluid cultures with E. coli, Citrobacter, anaerobic GNR. Had been on IV Zosyn with diflucan added on yesterday persistent WBC and discomfort despite being on IV abx since the procedure repeat CT demonstrated slightly increasing abscess for repeat drainage today by IR appreciate surgery consult resume diet post-procedure (2) Diabetes mellitus Current Visit: Yes Status: Chronic Assessment and Plan: A1c 7.2 Low dose sliding scale ADA diet post procedure (3) Peripheral neuropathy Current Visit: Yes Status: Acute Assessment and Plan: Resume gabapentin (4) Sepsis Current Visit: Yes Status: Resolved Assessment and Plan: Secondary to appendicitis. Plan as noted above. Sepsis now resolved. (5) HTN (hypertension) Current Visit: Yes Status: Acute Assessment and Plan: Resume home meds (6) DVT prophylaxis Current Visit: Yes Status: Acute Assessment and Plan: SCD - Time Spent with Patient Total time spent is greater than 50% in coordination of care (as documented) at patient's floor/unit and/or counseling patient: Plan of Care Discussed with: patient Internal Medicine: Result - Labs CBC & Chem 7: 07/24/18 04:33 07/24/18 04:33 Labs: Short CBC 07/24/18 Range/Units 04:33 WBC 14.4 H (4.3-11.1) K/mcL Hgb 13.3 (11.5-15.4) g/dL Hct 39.9 (35.3-44.9) % Plt Count 205 (140-400) K/mcL BMP 07/24/18 04:33 Sodium 139 Potassium 4.1 Chloride 106 Carbon Dioxide 26 BUN 10 Creatinine 0.44 L Glucose 173 H Calcium 8.9 - ABG Interpretation ABG results: PT/INR, D-dimer PT 14.1 Seconds (9.4-12.1) H 07/17/18 19:27 - Impressions Impressions Abdomen/Pelvis CT 07/23/18 14:00 IMPRESSION: 1. Redemonstration of ruptured appendicitis. Right lower quadrant abscess, at the tip of the appendix, has increased in size compared to prior exam of 07/17/2018. 2. Cholelithiasis. 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
[2018-07-24] MEDS ORDERED: 0.9 % Sodium Chloride 500 ML ONE (12:23)
[2018-07-24] MEDS ORDERED: *HR* FentaNYL (PF) 100 MCG/2 ML VIAL ONE (12:29)
[2018-07-24] MEDS ORDERED: *HR* Midazolam HCl 2 MG/2 ML VIAL ONE (12:29)
[2018-07-24] MEDS ORDERED: *HR* FentaNYL (PF) 100 MCG/2 ML VIAL IVP ONE (12:32)
[2018-07-24] MEDS ORDERED: *HR* Midazolam HCl 2 MG/2 ML VIAL IVP ONE (12:32)
--- NOTE | 2018-07-24 12:34 | Pre-Sedation Evaluation ---
Pre-sedation evaluation - Pre-sedation checklist Date of procedure: 07/24/18 Procedure: drain Recent Vitals: Last Vital Signs Temp 98.1 F 07/24/18 10:57 Pulse 77 07/24/18 12:21 Resp 15 07/24/18 12:21 BP 166/76 07/24/18 12:21 Pulse Ox 94 07/24/18 10:57 H&P (including ROS) documented in medical record: Yes Previous reaction to sedatives/anesthetics: No Dietary Status: NPO after Midnight Airway Assessment: Patient can open mouth completely, TMJ function normal, Micrognathia (under-bite, receding chin) absent, Neck with adequate range of m otion Dentition: No loose teeth or bridges Possible difficult airway: No ASA Classification *see protocol: CLASS II-Mild systemic disease Plan of Care: Pt appropriate candidate for procedure/moderate/conscious sedation, Risks/benefits of procedure/sedation discussed w/ patient/family
[2018-07-24] MEDS: OXYCODONE Oral CONC 10 MG/0.5 ML ORAL.SYG SL PRN (20:09)
[2018-07-25 04:06] LABS: Basophils # 0.1 K/mcL (0.0-0.2); Basophils % 0.7 %; Eosinophils # 0.4 K/mcL (0.0-0.6); Eosinophils % 3.1 %; Hematocrit 38.9 % (35.3-44.9); Hemoglobin 12.7 g/dL (11.5-15.4); Immature Granulocytes % 1.6 % (0-4); Lymphocytes % 24.8 %; Mean Corpuscular HGB Conc 32.6 g/dL (31.6-35.5); Mean Platelet Volume 9.4 fL (9.4-12.4); Monocytes # 0.9 K/mcL (0.0-1.3); Monocytes % 7.2 %; Neutrophils # 7.5 K/mcL (1.6-8.9); Platelet Count 252 K/mcL (140-400); Red Blood Count 4.23 M/mcL (3.82-4.97); Red Cell Distribution Width 13.1 % (11.5-14.5); Segmented Neutrophils % 62.6 %
[2018-07-25 04:29] LABS: BUN/Creatinine Ratio 24 (6-26); Blood Urea Nitrogen 9 mg/dL (8-23); Calcium 8.8 mg/dL (8.6-10.3); Carbon Dioxide 26 mEq/L (23-29); Chloride 103 mEq/L (98-107); Glucose 146 mg/dL (70-105); Osmolality,Calculated 283 (280-300); Potassium 3.8 mEq/L (3.5-5.1); Sodium 136 mEq/L (136-145); eGFR For Non-African Americans > 60 (> 60)
[2018-07-25] MEDS: Piperacillin/Tazobactam 3.375 GM in 0.9 % Sodium Chloride Mini Bag 100 ML IVPB SCH (05:46)
[2018-07-25 07:28] VITALS: BP 137/75
--- NOTE | 2018-07-25 08:16 | General Surgery Progress Note ---
<Geovanna Lyon Rosalinda - Last Filed: 07/25/18 08:12> Date of Encounter: 07/25/18 Time of Encounter: 08:16 - Assessment and Plan (1) Ruptured appendicitis Current Visit: Yes Status: Acute Admitted on 07/17/2018 for ruptured appendicitis. s/p IR aspiration 07/18/2018 aprox 17 ml purulent fluid removed, no drain left. Micro to date with gram neg rods, E-coli and and Citrobacter farmeri both susceptible to Augmentin. s/p IR 12-F abscess drainage catheter placement 07/24/2018 micro to date with gram negative rods, gram positive cocci. WBC decreased from 14.4 to 12.0 and is without abnormalities on differential OK to d/c from a surgical standpoint after 1) home health in place for drain care (see drain care orders below), 2) patient has been provided drain sponges, tape, a drain record, and a specimen cup, 3) drain care instructions provided by the bedside RN prior to discharge (see drain care orders below), 4) provide the patient with a bottle of chlorhexidine or Hibiclens soap, 5) provide the patient with 28 syringes of 10 ml 0.9NS Daily Drain Care: remove dressings. Suspend drain on a lanyard or string around your neck for shower. Shower with antibacterial soap daily. Pat skin dry. Apply split gauze. Tape to secure. Twice Daily Drain Management: Turn the stopcock off to patient. Empty SHEELA bulb into a specimen cup. Record the drainage. Flush the line with 10 mL normal saline towards the bulb (AWAY FROM BODY). Empty the SHEELA bulb into the specimen cup and do NOT record this drainage. Replace the. Turn the stopcock to off to air. Referral to has been placed for [facility]. Dispo per primary team. Subjective Patient reports: no new complaints, pain is less, tolerating liquids well, tolerating a regular diet, voiding w/o difficulty, flatus, bowel movement, afebrile Narrative: Milka states her abdominal pain is resolved. She feels pressure like she needs to have a bowel movement but cannot. She denies nausea or vomiting, fever chills. She states her abdominal pain completely resolved after the drain was placed. Objective Vital Signs - Last 8 Hours Temp Pulse Resp BP Pulse Ox 07/25/18 07:20 98.0 F 78 16 137/75 93 07/25/18 05:11 97.9 F 89 16 138/70 91 Intake and Output 07/24/18 07/25/18 07/25/18 23:59 07:59 15:59 Intake Total 620 / 620 100 / 100 Output Total 415 / 415 570 / 570 Balance 205 / 205 -470 / -470 Intake: IV Fluids 620 / 620 100 / 100 0.9 % Sodium Chloride 1,000 ML 420 / 420 @ 75 mls/hr IVC .[id number] [facility]IJ[facility] Rx #:[id number] Zosyn 3.375 GM In 0.9 % Sodium 100 / 100 100 / 100 Chloride (Mini-Bag +) 100 ML @ 25 mls/hr IVPB [facility] Rx#: [id number] Oral 0 / 0 0 / 0 Output: Urine 400 / 400 550 / 550 Wound Drainage Right Lower Abdomen Other: Meal Dinner Percent of Meal Consumed 75% # Voids 1 Weight 85.3 kg Blood Glucose* 156 142 Patient Weight 07/25/18 23:59 Weight 85.3 kg - General physical appearance no distress - Eyes normal ocular movement - ENT normal nares, normal mucosa, atraumatic, normocephalic - Neck Neck exam: trachea midline - Respiratory normal expansion, normal respiratory effort, clear to auscultation - Cardiovascular Cardiovascular exam: Present: RRR - Abdomen Abdomen: Present: bowel sounds present, soft, non tender, wound (RLQ drain site WNL; purulent drainage noted) Hernia: none - Integumentary no rash, no growths - Neurologic normal coordination, normal sensation - Musculoskeletal normal posture - Psychiatric oriented to time, oriented to person, oriented to place, speech is normal, memory intact - Labs 07/25/18 03:26 07/25/18 03:26 Diabetes panel 07/24/18 07/25/18 Range/Units 04:33 03:26 Sodium 136 (136-145) mEq/L Potassium 3.8 (3.5-5.1) mEq/L Chloride 103 (98-107) mEq/L Carbon Dioxide 26 (23-29) mEq/L BUN 9 (8-23) mg/dL Creatinine 0.37 L (0.60-1.20) mg/dL Glucose 146 H (70-105) mg/dL Hemoglobin A1c 7.2 H ( - 5.6) % Calcium 8.8 (8.6-10.3) mg/dL Calcium panel 07/25/18 Range/Units 03:26 Calcium 8.8 (8.6-10.3) mg/dL Pituitary panel 07/25/18 Range/Units 03:26 Sodium 136 (136-145) mEq/L Potassium 3.8 (3.5-5.1) mEq/L Chloride 103 (98-107) mEq/L Carbon Dioxide 26 (23-29) mEq/L BUN 9 (8-23) mg/dL Creatinine 0.37 L (0.60-1.20) mg/dL Glucose 146 H (70-105) mg/dL Calcium 8.8 (8.6-10.3) mg/dL Adrenal panel 07/25/18 Range/Units 03:26 Sodium 136 (136-145) mEq/L Potassium 3.8 (3.5-5.1) mEq/L Chloride 103 (98-107) mEq/L Carbon Dioxide 26 (23-29) mEq/L BUN 9 (8-23) mg/dL Creatinine 0.37 L (0.60-1.20) mg/dL Glucose 146 H (70-105) mg/dL Calcium 8.8 (8.6-10.3) mg/dL Consult Discharge Plan - Plan Instructions: Appendicitis (DC) Additional Instructions: Daily Drain Care: remove dressings. Suspend drain on a lanyard or string around your neck for shower. Shower with antibacterial soap daily. Pat skin dry. Apply split gauze. Tape to secure. Twice Daily Drain Management: Turn the stopcock off to patient. Empty SHEELA bulb into a specimen cup. Record the drainage. Flush the line with 10 mL normal saline towards the bulb (AWAY FROM BODY). Empty the SHEELA bulb into the specimen cup and do NOT record this drainage. Replace the. Turn the stopcock to off to air. Referrals: Tramaine Sigala MD [Non-Partnered Physician] - 08/07/18 9:00 am Prescriptions: Amoxicillin/Clavulanate [Augmentin] 875 mg PO BIDWM 14 Days #28 tablet Fluconazole [Diflucan] 100 mg PO DAILY 14 Days #14 tablet <Tramaine Sigala - Last Filed: 07/25/18 13:28> Date of Encounter: 07/25/18 - Assessment and Plan (1) Ruptured appendicitis Current Visit: Yes Status: Acute Objective Vital Signs - Last 8 Hours Temp Pulse Resp BP Pulse Ox 07/25/18 07:20 98.0 F 78 16 137/75 93 Intake and Output 07/24/18 07/25/18 07/25/18 23:59 07:59 15:59 Intake Total 620 / 620 100 / 100 120 / 120 Output Total 415 / 415 570 / 570 Balance 205 / 205 -470 / -470 120 / 120 Intake: IV Fluids 620 / 620 100 / 100 0.9 % Sodium Chloride 1,000 ML 420 / 420 @ 75 mls/hr IVC .[id number] [facility] Rx #:[id number] Zosyn 3.375 GM In 0.9 % Sodium 100 / 100 100 / 100 Chloride (Mini-Bag +) 100 ML @ 25 mls/hr IVPB Q8H [facility] Rx#: [id number] Oral 0 / 0 0 / 0 120 / 120 Output: Urine 400 / 400 550 / 550 Wound Drainage Right Lower Abdomen Other: Meal Dinner Breakfast Percent of Meal Consumed 75% 100% # Voids 1 Weight 85.3 kg Blood Glucose* 156 142 Patient Weight 07/25/18 23:59 Weight 85.3 kg - Labs 07/25/18 03:26 07/25/18 03:26 Diabetes panel 07/25/18 Range/Units 03:26 Sodium 136 (136-145) mEq/L Potassium 3.8 (3.5-5.1) mEq/L Chloride 103 (98-107) mEq/L Carbon Dioxide 26 (23-29) mEq/L BUN 9 (8-23) mg/dL Creatinine 0.37 L (0.60-1.20) mg/dL Glucose 146 H (70-105) mg/dL Calcium 8.8 (8.6-10.3) mg/dL Calcium panel 07/25/18 Range/Units 03:26 Calcium 8.8 (8.6-10.3) mg/dL Pituitary panel 07/25/18 Range/Units 03:26 Sodium 136 (136-145) mEq/L Potassium 3.8 (3.5-5.1) mEq/L Chloride 103 (98-107) mEq/L Carbon Dioxide 26 (23-29) mEq/L BUN 9 (8-23) mg/dL Creatinine 0.37 L (0.60-1.20) mg/dL Glucose 146 H (70-105) mg/dL Calcium 8.8 (8.6-10.3) mg/dL Adrenal panel 07/25/18 Range/Units 03:26 Sodium 136 (136-145) mEq/L Potassium 3.8 (3.5-5.1) mEq/L Chloride 103 (98-107) mEq/L Carbon Dioxide 26 (23-29) mEq/L BUN 9 (8-23) mg/dL Creatinine 0.37 L (0.60-1.20) mg/dL Glucose 146 H (70-105) mg/dL Calcium 8.8 (8.6-10.3) mg/dL - Attending Attestation Patient seen and examined. i have reviewed all labs, imaging, and notes. I have discussed the plan in detail with the team and agree with the above assessment and plan.
[2018-07-25] MEDS ORDERED: Bisacodyl 10 MG RECTAL SUPPOSITORY RC ONE (08:17)
[2018-07-25] MEDS: Ascorbic Acid 500 MG TABLET PO SCH (09:13)
[2018-07-25] MEDS: Gabapentin 100 MG CAPSULE PO SCH (09:14)
[2018-07-25] MEDS: Multivit/Ca/Min/Fe/FA 1 TAB TABLET PO SCH (09:14)
[2018-07-25] MEDS: Vitamin B Complex/Vit C/Vit E 1 EACH TABLET PO SCH (09:14)
[2018-07-25] MEDS: Cholecalciferol (D-3) 1,000 UNIT TABLET PO SCH (09:14)
[2018-07-25] MEDS: Fluconazole 200 MG/100 ML 200 MG/100 ML BAG IVPB SCH (09:14)
[2018-07-25] MEDS: Insulin LISPRO 300 UNITS/3 ML VIAL SQ SCH (09:17)
--- NOTE | 2018-07-25 13:32 | Discharge Summary ---
- NOTES TO OUTPATIENT PROVIDER Notes to Outpatient Provider: PCP in 5 to 7 days. Surgery out pt as scheduled Orders not resulted at time of discharge: Pending orders 07/18/18 14:28 AFB Culture, Body Fluid [TB] Stat AFB Smear [TB] Stat Culture,Anaerobic [RM] Stat Fungal Culture [MYC] Stat 07/23/18 14:23 Culture,Anaerobic [RM] Stat Culture,Body Fluid [RM] Stat 07/23/18 14:24 Fungal Culture [MYC] Stat 07/26/18 04:00 BMP [Basic Metabolic Panel] AM 0400 Complete Blood Count w/o Diff [HEME] AM 0400 07/27/18 04:00 BMP [Basic Metabolic Panel] AM 0400 Complete Blood Count w/o Diff [HEME] AM 0400 07/28/18 04:00 BMP [Basic Metabolic Panel] AM 0400 Complete Blood Count w/o Diff [HEME] AM 0400 Date of Encounter: 07/25/18 Time of Encounter: 13:22 - Discharge Diagnosis (1) Ruptured appendicitis Priority: Primary Status: Acute Assessment and Plan: complicated by abscess formation s/p drainage on 07/18 fluid cultures with E. coli, Citrobacter, anaerobic GNR. Had been on IV Zosyn with diflucan added on 07/23/18 persistent WBC and discomfort despite being on IV abx since the procedure repeat CT demonstrated slightly increasing abscess for repeat drainage done 07/24/18 by IR Seen by surgery o this admission. Will DC on few more days of Flucoazole and Augmentin. (2) Sepsis Priority: Primary Status: Resolved Assessment and Plan: Secondary to appendicitis. Plan as noted above. Sepsis now resolved. 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 Diabetes mellitus complication status: with unspecified complications Qualified Code(s): E11.8 - Type 2 diabetes mellitus with unspecified complications (4) Peripheral neuropathy Priority: Secondary Status: Acute Assessment and Plan: Resume gabapentin Qualifiers: Peripheral neuropathy type: polyneuropathy, unspecified Qualified Code(s): G62.9 - Polyneuropathy, unspecified (5) HTN (hypertension) Priority: Secondary Status: Acute Assessment and Plan: Resume home meds, Losartan Qualifiers: Hypertension type: essential hypertension Qualified Code(s): I10 - Essential (primary) hypertension Hospital course: History of present illness: Dr. Nelson/[place] Ms. Lyle is a 68 year old female with a history of non-insulin dependent diabetes and peripheral neuropathy. Presented to ED for evaluation of elevated blood sugars (200-300s) and abdominal pain. Reports that her glucose is usually in the low 100's. Abdominal pain, malaise, poor appetite, and mild nausea without vomiting for the past 2-3 days. Pain has been worsening and is now localizing to the RLQ. Reports low grade fever at home. Denies chest pain, palpitations, shortness of breath, change in bowel habits, vomiting, hematochezia, melena. CT abdomen and pelvis in the ED consistent with perforated appendicitis with 3.3 x 3.8 cm fluid collection. WBC elevated at 30K with bands present. Lactate WNL. Received IV zosyn. See A/P for hospital course Discharge discussed with: patient - Time Spent with Patient Total time spent providing and/or coordinating discharge services: Greater than 30 minutes - Discharge Medications Prescriptions: Amoxicillin/Clavulanate [Augmentin] 875 mg PO BIDWM 14 Days #28 tablet Fluconazole [Diflucan] 100 mg PO DAILY 14 Days #14 tablet Home Medications: Ascorbic Acid [Vitamin C] 1,000 mg PO DAILY 07/17/18 [History] Cholecalciferol (Vitamin D3) [Vitamin D3] 2,000 unit PO DAILY 07/17/18 [History] Fish Oil/Dha/Epa [Fish Oil 1,200 mg Fish Oil] 3 cap PO DAILY 07/17/18 [History] Gabapentin [Neurontin] 200 mg PO BID 07/17/18 [History] Losartan Potassium 25 mg PO BID 07/17/18 [History] Magnesium 750 - 1,000 mg PO DAILY 07/17/18 [History] Metformin HCl 1,000 mg PO BID 07/17/18 [History] Multivitamin [One Daily] 1 tab PO DAILY 07/17/18 [History] Vitamin B Complex [Balanced B-50] 2 cap PO DAILY 07/17/18 [History] Amoxicillin/Clavulanate [Augmentin] 875 mg PO BIDWM 14 Days #28 tablet 07/22/18 [Rx] Fluconazole [Diflucan] 100 mg PO DAILY 14 Days #14 tablet 07/25/18 [Rx] Allergies/Adverse Reactions: Allergy/AdvReac Type Severity Reaction Status Date / Time No Known Allergies Allergy Verified 07/17/18 18:23 Date of admission: 07/18/18 18:04 Primary care physician: Sherry Fermin CNP Consults: 07/17/18 21:47 Consult to Surgery [CONS] Stat Consulting Provider: Surgery [facility] Reason for Consult: ruptured appendicitis w/ abscess Time Notified: 21:47 Call Completed: Yes 07/17/18 21:53 Consult to Interventional Radiology [CONS] Stat Consulting Provider: Radiology Interventional Cols Reason for Consult: eval for drainage of periappendiceal abscess Call Completed: No 07/23/18 14:22 Consult to Interventional Radiology [CONS] Stat Consulting Provider: Radiology Interventional Cols Reason for Consult: RLQ abscess has enlarged in size, need drain placed please Call Completed: No 07/25/18 06:56 Consult to Circuits Engineer [CONS] Stat Reason for SW Consult: [facility] for drain care Discharging clinician: Pat Vazquez Anticipated date of discharge: 07/25/18 - Constitutional Vitals: Temp Pulse Resp BP Pulse Ox 98.0 F 78 16 137/75 93 07/25/18 07:20 07/25/18 07:20 07/25/18 07:20 07/25/18 07:20 07/25/18 07:20 Exam: Exam: General: lying in bed, appears comfortable, no apparent distress. HEENT: Atraumatic, normocephalic, Pupils PERLL with EOMI, dry mucous membranes Neck: soft, full range of motion, no lymphadenopathy Cardio: regular rate and rhythm, systolic murmur Respiratory: clear to ausculation bilateral, no wheezing, crackles, or rhonchi Abdomen: Soft, obese, no tenderness or rebound Extremities: No swelling or edema, 2+ peripheral pulses Neuro: Alert and oriented to person, place, and situation. No focal deficients Psych: conversant and pleasant, appropriate mood and affect - Patient Status Disposition: Home, Self-Care Condition: Fair Overall status at discharge: patient is back to baseline - Discharge Instructions Instructions: Appendicitis (DC) Follow Up With: Tramaine Sigala MD [Non-Partnered Physician] - 08/07/18 9:00 am Sherry Fermin CNP [Primary Care Provider] - Additional Instructions: Daily Drain Care: remove dressings. Suspend drain on a lanyard or string around your neck for shower. Shower with antibacterial soap daily. Pat skin dry. Apply split gauze. Tape to secure. Twice Daily Drain Management: Turn the stopcock off to patient. Empty SHEELA bulb into a specimen cup. Record the drainage. Flush the line with 10 mL normal saline towards the bulb (AWAY FROM BODY). Empty the SHEELA bulb into the specimen cup and do NOT record this drainage. Replace the. Turn the stopcock to off to air. - Diet and Activity Activity: increase activity as tolerated Diet: advance to your usual diet
--- NOTE | 2018-07-25 15:01 | Physician Discharge Referral ---
Home Health/Hosp Referral Info Transfer to: Home Health Provider in Charge Post Discharge: PCP (Daily Drain Care: remove dressings. Suspend drain on a lanyard or string around your neck for shower. Shower with antibacterial soap daily. Pat skin dry. Apply split gauze. Tape to secure. Twice Daily Drain Management: Turn the stopcock off to patient. Empty SHEELA bulb into a specimen cup. Record the drainage. Flush the line with 10 mL normal saline towards the bulb (AWAY FROM BODY). Empty the SHEELA bulb into the specimen cup and do NOT record this drainage. Replace the. Turn the stopcock to off to air.) - Diagnosis (1) Ruptured appendicitis Priority: Primary Status: Acute (2) Sepsis Status: Resolved (3) Diabetes mellitus Status: Chronic (4) Peripheral neuropathy Status: Acute (5) HTN (hypertension) Status: Acute - Respiratory Orders Smoking Cessation: Smoking cessation has been advised. For more information, call the [employer] Quit Line at 3-053-PDLR-NOW. - Services Needed Following services are medically necessary services: Nursing (Daily Drain Care: remove dressings. Suspend drain on a lanyard or string around your neck for shower. Shower with antibacterial soap daily. Pat skin dry. Apply split gauze. Tape to secure. Twice Daily Drain Management: Turn the stopcock off to patient. Empty SHEELA bulb into a specimen cup. Record the drainage. Flush the line with 10 mL normal saline towards the bulb (AWAY FROM BODY). Empty the SHEELA bulb into the specimen cup and do NOT record this drainage. Replace the. Turn the stopcock to off to air.) - Transfer Medications Prescriptions: Amoxicillin/Clavulanate [Augmentin] 875 mg PO BIDWM 14 Days #28 tablet Fluconazole [Diflucan] 100 mg PO DAILY 14 Days #14 tablet Home Medications: Ascorbic Acid [Vitamin C] 1,000 mg PO DAILY 07/17/18 [History] Cholecalciferol (Vitamin D3) [Vitamin D3] 2,000 unit PO DAILY 07/17/18 [History] Fish Oil/Dha/Epa [Fish Oil 1,200 mg Fish Oil] 3 cap PO DAILY 07/17/18 [History] Gabapentin [Neurontin] 200 mg PO BID 07/17/18 [History] Losartan Potassium 25 mg PO BID 07/17/18 [History] Magnesium 750 - 1,000 mg PO DAILY 07/17/18 [History] Metformin HCl 1,000 mg PO BID 07/17/18 [History] Multivitamin [One Daily] 1 tab PO DAILY 07/17/18 [History] Vitamin B Complex [Balanced B-50] 2 cap PO DAILY 07/17/18 [History] Amoxicillin/Clavulanate [Augmentin] 875 mg PO BIDWM 14 Days #28 tablet 07/22/18 [Rx] Fluconazole [Diflucan] 100 mg PO DAILY 14 Days #14 tablet 07/25/18 [Rx] Allergies/Adverse Reactions: Allergy/AdvReac Type Severity Reaction Status Date / Time No Known Allergies Allergy Verified 07/17/18 18:23 Certification: Further, I certify that my clinical findings support that this patient is homebound (i.e. absences from home require considerable and taxing effort and are for medical reasons or [employer] services or infrequently or short duration when for other reasons) because: Homebound Reason: Patient requires assistance of a person or device to safely leave home Attestation: My signature below is to certify that this patient is under my care and that I, or nurse practitioner, or a physician's imaging assistant working with me, has a [id number] encounter with this patient.
== END 2018-07-25 13:46 | disposition home or self-care (01) | DRG 871 ==
LOC: 3ANU 18:13 → EMEROOARM 18:13 → 3ANU 07-18 00:03 → SUATTDRO 07-18 18:04
PROVIDERS: ADMIT Family Medicine; ATTEND Internal Medicine
PROC: IRDRAIN (2018-07-18 12:00)